=== PATIENT | male | born 1955 | race Caucasian/White ===

== ENCOUNTER 2017-10-08 12:57 | Inpatient (IN) | payer BC ==
[~2017-10-08] VITALS: Ht 185.4 cm; Wt 115.9 kg
[~2017-10-08 12:57] MED LIST: ASCO500C PO; ASPI81 PO; ASPI81TA82 PO; ATOR10 PO; CENTTAB9 PO; CETI10 PO; COQ150CA PO; GUAI600 PO; KRIL300C3 PO; MISC1TAB9 PO; NEBI2.5 PO; NITR.4 SL
[2017-10-08] MEDS ORDERED: IOHEXOL 350 MG/ML 10 ML VIAL (for RAD DIAG) IVCONTRAST ONE (12:58)
[2017-10-08 13:00] VITALS: BP 128/76; PULSE 83; RESP 24; TEMP 98.7; O2SAT 97
[2017-10-08 14:09] LABS: AUTOMATED NEUTROPHIL # 14.3 TH/MM3 (1.8-7.7); BASOPHIL % 0.1 % (0.0-2.0); EOSINOPHIL # 0.2 TH/MM3 (0-0.4); EOSINOPHIL % 1.4 % (0.0-4.0); HEMATOCRIT 40.4 % (39.0-51.0); HEMOGLOBIN 13.9 GM/DL (13.0-17.0); LYMPH % 8.9 % (9.0-44.0); LYMPHOCYTE # 1.5 TH/MM3 (1.0-4.8); MEAN CELL VOLUME 95.8 FL (80.0-100.0); MEAN CORPUSCULAR HEMOGLOBIN 32.9 PG (27.0-34.0); MEAN CORPUSCULAR HGB CONC 34.4 % (32.0-36.0); MEAN PLATELET VOLUME 7.2 FL (7.0-11.0); MONO % 5.8 % (0.0-8.0); NEUT % 83.8 % (16.0-70.0); PLATELET COUNT 558 TH/MM3 (150-450); RED BLOOD COUNT 4.22 MIL/MM3 (4.50-5.90); RED CELL DISTRIBUTION WIDTH 13.9 % (11.6-17.2); WHITE BLOOD COUNT 17.1 TH/MM3 (4.0-11.0)
[2017-10-08] MEDS ORDERED: DIATRIZOATE MEGLUM/DIATRIZOATE SOD 9 ML CUP ONE (14:13)
[2017-10-08 14:15] VITALS: BP 109/61; PULSE 70; RESP 20; O2SAT 97
--- NOTE | 2017-10-08 14:19 | PD ---
HPI Chief Complaint: Fever Time Seen by Provider: 13:24 Travel History International Travel<30 days: No Contact w/Intl Traveler<30days: No Traveled to known affect area: No History of Present Illness HPI 62-year-old male patient presents emergency department for evaluation of intermittent fevers after having an emergency appendectomy on the 29 of September. Patient was discharged from the hospital on the 30 of September. The surgeon's name was Dr Burr. Patient reports the fevers as been as high as 101.5. That fever was 2 days ago. Yesterday patient's temp was 100. Patient denies any fevers today. The surgery was performed at [facility]. The patient presents with his . They report that the appendix had ruptured prior to the surgery and he received IV antibiotics in the facility and was discharged on Augmentin. Patient is still on Augmentin. Patient denies any abdominal pain, nausea, vomiting, diarrhea. Patient denies any chest pain, shortness of breath, cough, body aches. Patient is afebrile at our facility PFSH Past Medical History Hx Anticoagulant Therapy: Yes (ASA 81MG BID) Heart Rhythm Problems: No Cancer: No Cardiac Catheterization: Yes (x 3 ) High Cholesterol: Yes Chest Pain: Yes Congestive Heart Failure: No Coronary Artery Disease: Yes Diminished Hearing: No Endocrine: No Gastrointestinal Disorders: No Genitourinary: No Hypertension: Yes Immune Disorder: No Musculoskeletal: No Neurologic: No Psychiatric: No Reproductive: No Respiratory: No Influenza Vaccination: No Past Surgical History Abdominal Surgery: No Appendectomy: Yes Cardiac Surgery: Yes Coronary Stent: Yes (x 2) Ear Surgery: No Endocrine Surgery: No Eye Surgery: No Genitourinary Surgery: No Gynecologic Surgery: No Oral Surgery: No Thoracic Surgery: No Other Surgery: Yes Social History Alcohol Use: Yes (OCC) Tobacco Use: No Substance Use: No Allergies-Medications (Allergen,Severity, Reaction): Coded Allergies: No Known Allergies (Verified Adverse Reaction, Unknown, 10/08/17) Reported Meds & Prescriptions Reported Meds & Active Scripts Active Reported Osteo Bi-Flex/5-Loxin Adv (Glucosamine Sulfate) 1 Tab Tab 1 Tab PO DAILY Krill Oil [place]-3 (Krill Oil) 300 Mg Cap 300 Mg PO DAILY Mucinex 600 Mg Tab (Guaifenesin) 600 Mg Tabcr 600 Mg PO HS Zyrtec 10 Mg Tab (Cetirizine HCl) 10 Mg Tab 10 Mg PO DAILY Aspir-81 (Aspirin) 81 Mg Tab 162 Mg PO HS Vitamin C (Ascorbic Acid) 500 Mg Cap 500 Mg PO BID Coq10 (Coenzyme Q10) 50 Mg Cap 100 Mg PO HS Centrum (Multivitamins) Tab 1 Tab PO DAILY Lipitor (Atorvastatin Calcium) 10 Mg Tab 20 Mg PO HS Bystolic 2.5 Mg Tab (Nebivolol) 2.5 Mg Tab 2.5 Mg PO DAILY Nitroglycerin 0.4 Mg Subl 0.4 Mg SL PRN FOR CHEST PAIN Aspirin 81 Mg Tab 81 Mg PO DAILY Review of Systems Except as stated in HPI: all other systems reviewed are Neg Physical Exam Narrative GENERAL: Well-nourished, well-developed 62-year-old male patient in no acute distress. Nontoxic appearing. SKIN: 3 small well approximated incisions on abdomen with Steri-Strips in place : 2cm incision inferior to the umbilicus, 1cm incision left lower quadrant, 1cm incision over the symphysis pubis. HEAD: Atraumatic. Normocephalic. EYES: Pupils equal and round. No scleral icterus. No injection or drainage. ENT: No nasal bleeding or discharge. Mucous membranes pink and moist. NECK: Trachea midline. No JVD. CARDIOVASCULAR: Regular rate and rhythm. No murmur appreciated. RESPIRATORY: No accessory muscle use. Clear to auscultation. Breath sounds equal bilaterally. GASTROINTESTINAL: Abdomen soft, non-tender, nondistended. No rebound tenderness. Hepatic and splenic margins not palpable. MUSCULOSKELETAL: No obvious deformities. No clubbing. No cyanosis. No edema. NEUROLOGICAL: Awake and alert. No obvious cranial nerve deficits. Motor grossly within normal limits. Normal speech. PSYCHIATRIC: Appropriate mood and affect; insight and judgment normal. Data Data Last Documented VS Vital Signs Date Time Temp Pulse Resp B/P (MAP) Pulse Ox O2 Delivery O2 Flow Rate FiO2 10/08/17 16:45 68 18 105/56 (72) 97 Room Air 10/08/17 13:00 98.7 Orders Orders Complete Blood Count With Diff (10/08/17 13:36) Comprehensive Metabolic Panel (10/08/17 13:36) Lactic Acid Sepsis Protocol (10/08/17 13:36) Blood Culture (10/08/17 13:36) Ct Abd/Pel W Iv Contrast(Rout) (10/08/17 13:36) Oral Contrast - Adult (10/08/17 13:42) Diatrizoate Liq ( Gastrojimmy Liq) (10/08/17 14:13) Iohexol 350 Inj (Omnipaque 350 Inj) (10/08/17 12:58) NPO (10/08/17 17:44) Piperacil-Tazo 4.5 Gm Premix (Zosyn 4.5 (10/08/17 17:46) Metronidazole 500 Mg Inj (Flagyl 500 Mg (10/08/17 17:46) Admit Order (Ed Use Only) (10/08/17 18:31) Admit To Inpatient (10/08/17 ) Vital Signs (Adult) Q4H (10/08/17 18:31) Activity Oob With Assistance (10/08/17 18:31) Remote Computer Terminal Operator / Telemetry .CONTINUOUS (10/08/17 18:31) Sodium Chloride 0.9% Flush (Ns Flush) (10/08/17 18:45) Sodium Chloride 0.9% Flush (Ns Flush) (10/08/17 21:00) Ondansetron Inj (Zofran Inj) (10/08/17 18:45) Basic Metabolic Panel (Bmp) (10/09/17 06:00) Complete Blood Count With Diff (10/09/17 06:00) Naloxone Inj (Narcan Inj) (10/08/17 18:45) Inpatient Certification (10/08/17 ) Labs Laboratory Tests Test 10/08/17 13:40 White Blood Count 17.1 TH/MM3 Red Blood Count 4.22 MIL/MM3 Hemoglobin 13.9 GM/DL Hematocrit 40.4 % Mean Corpuscular Volume 95.8 FL Mean Corpuscular Hemoglobin 32.9 PG Mean Corpuscular Hemoglobin Concent 34.4 % Red Cell Distribution Width 13.9 % Platelet Count 558 TH/MM3 Mean Platelet Volume 7.2 FL Neutrophils (%) (Auto) 83.8 % Lymphocytes (%) (Auto) 8.9 % Monocytes (%) (Auto) 5.8 % Eosinophils (%) (Auto) 1.4 % Basophils (%) (Auto) 0.1 % Neutrophils # (Auto) 14.3 TH/MM3 Lymphocytes # (Auto) 1.5 TH/MM3 Monocytes # (Auto) 1.0 TH/MM3 Eosinophils # (Auto) 0.2 TH/MM3 Basophils # (Auto) 0.0 TH/MM3 CBC Comment DIFF FINAL Differential Comment Blood Urea Nitrogen 10 MG/DL Creatinine 0.91 MG/DL Random Glucose 98 MG/DL Total Protein 8.2 GM/DL Albumin 2.7 GM/DL Calcium Level 8.5 MG/DL Alkaline Phosphatase 118 U/L Aspartate Amino Transf (AST/SGOT) 53 U/L Alanine Aminotransferase (ALT/SGPT) 75 U/L Total Bilirubin 0.4 MG/DL Sodium Level 137 MEQ/L Potassium Level 4.3 MEQ/L Chloride Level 101 MEQ/L Carbon Dioxide Level 29.2 MEQ/L Anion Gap 7 MEQ/L Estimat Glomerular Filtration Rate 84 ML/MIN Lactic Acid Level 0.7 mmol/L [facility] Medical Decision Making Medical Screen Exam Complete: Yes Emergency Medical Condition: Yes Interpretation(s) afebrile, no tachycardia Differential Diagnosis Differential diagnoses include but are not limited to intra-abdominal abscess, postop infection, peritonitis Narrative Course Patient placed on monitor and IV obtained. Blood works in the lab. CBC, CMP, lactic acid, blood cultures ordered and pending. Abdominal CT ordered and pending. CBC shows leukocytosis with WBCs 17.1. CMP shows hypoalbuminemia at 2.7 Lactic acid 0.[address] shows loculated collection right lower quadrant with gas bubbles within it may represent an abscess in the appropriate clinical setting. Dr Burr called and Dr Sanders was covering. He was in our facility and came to evaluate the patient. He recommends admitting to medicine, consulting IR for draining the abscess tomorrow and Zosyn and Flagyl IV antibiotics. Medicine called for admission at this time. Dr Rees called back and accepted admission. Patient admitted at this time. Diagnosis Primary Impression: Intra-abdominal abscess Admitting Information Admitting Physician Requests: Admit Lucila Mullen Oct 08, 2017 14:19
[2017-10-08 14:24] LABS: ALBUMIN 2.7 GM/DL (3.4-5.0); ALT (GPT) 75 U/L (12-78); AST (GOT) 53 U/L (15-37); BICARBONATE 29.2 MEQ/L (21.0-32.0); BLOOD UREA NITROGEN 10 MG/DL (7-18); CALCIUM 8.5 MG/DL (8.5-10.1); CHLORIDE 101 MEQ/L (98-107); CREATININE 0.91 MG/DL (0.60-1.30); GLOMERULAR FILTRATION RATE 84 ML/MIN (>89); GLUCOSE,RANDOM 98 MG/DL (74-106); SODIUM (NA) 137 MEQ/L (136-145)
[2017-10-08 14:26] LABS: ALKALINE PHOSPHATASE 118 U/L (45-117); TOTAL BILIRUBIN ADULT 0.4 MG/DL (0.2-1.0); TOTAL PROTEIN 8.2 GM/DL (6.4-8.2)
[2017-10-08 15:45] VITALS: BP 112/62; PULSE 68; RESP 20; O2SAT 97
[2017-10-08 16:45] VITALS: BP 105/56; PULSE 68; RESP 18; O2SAT 97
--- NOTE | 2017-10-08 17:44 | RADRPT ---
EXAM DATE/TIME: 10/08/2017 17:21 [place] COMPARISON: No previous studies available for comparison. INDICATIONS : Fever for 4 days. Post op appendectomy. Possible abscess. IV CONTRAST: 95 cc Omnipaque 350 (iohexol) IV ORAL CONTRAST: Prescribed oral contrast ingested. RADIATION DOSE: 24.10 CTDIvol (mGy) ; Patient body habitus MEDICAL HISTORY : Cardiovascular disease. Hypertension. SURGICAL HISTORY : Appendectomy. ENCOUNTER: Initial ACUITY: 4 - 6 days PAIN SCALE: 2/10 LOCATION: Right lower quadrant TECHNIQUE: Volumetric scanning of the abdomen and pelvis was performed. Using automated exposure control and ad justment of the mA and/or kV according to patient size, radiation dose was kept as low as reasonably achievable to obtain optimal diagnostic quality images. DICOM format image data is available electro nically for review and comparison. FINDINGS: CT Abdomen: The liver, spleen, pancreas, kidneys, adrenals are unremarkable. There is no evidence for any appreciable pathological adenopathy, free fluid, or bowel obstruction. CT pelvis: There is a loculated fluid collection in right lower quadrant with gas bubbles within it a maximum diameter of 8.7 cm with haziness of surrounding fat planes in this patient post appendectomy . CONCLUSION: Loculated collection right lower quadrant with gas bubbles within it may represent an abscess in the appropriate clinical setting. April Lorenz MD on October 08, 2017 at 17:39 Board Certified Radiologist. This report was verified electronically.
[2017-10-08] MEDS ORDERED: PIPERACIL-TAZO 4.5 GM PREMIX 100 ML IV STA (17:46)
[2017-10-08] MEDS ORDERED: metroNIDAZOLE 500 MG INJ 100 ML IV STA (17:46)
[2017-10-08] MEDS ORDERED: ONDANSETRON HCL 4 MG/2 ML VIAL IVP PRN (18:45)
[2017-10-08] MEDS ORDERED: NALOXONE HCL 0.4 MG/ML AMP IV PUSH PRN (18:45)
[2017-10-08 18:55] VITALS: BP 133/94; PULSE 69; RESP 18; O2SAT 97
--- NOTE | 2017-10-08 19:18 | MB ---
cc: KEISHA JOHANSEN DATE OF : 51 DATE OF CONSULTATION: 10/08/2017 REQUESTING PHYSICIAN: Dr. Grant, emergency room physician. REASON FOR CONSULTATION: Possible abdominal abscess after laparoscopic appendectomy. HISTORY OF PRESENT ILLNESS The patient is a 62-year-old male who underwent a laparoscopic appendectomy at [facility] by Dr. Don Burr on September 29, 2017. The patient was noted to have a gangrenous appendicitis, possibly perforated, though this was unsure. The patient had uneventful surgery but was home and developed worsening pain and fever to 101.5. The patient was concerned and presented to [facility] as he did not want to return to [facility] The patient is known to Dr. Pierce, as Dr. Peirce operated on the patient's , and they were displeased that they were not seen by Dr. Pierce at [facility] The patient states he is able to tolerate a diet. He is having bowel movements. Other than the fevers and the pain, he has no other complaints. He has no chest pain or shortness of breath, or neurologic symptoms. The patient underwent a CT scan in the emergency department which showed a loculated right lower quadrant fluid collection with air bubbles, possible early abscess formation. Laboratory values revealed a leukocytosis of 17. The patient is being admitted to the hospital service for IV antibiotics and general surgery has been consulted on the patient. REVIEW OF SYSTEMS: A 12 point review of systems is discussed with the patient and is negative except for the pertinent positives mentioned above in the history of present illness. PAST MEDICAL HISTORY: 1. Hypocholesterolemia. 2. Coronary artery disease. 3. Hypertension. PAST SURGICAL HISTORY: 1. Appendectomy as above. 2. Coronary stents. 3. Cardiac surgery. ALLERGIES: NO KNOWN DRUG ALLERGIES. MEDICATIONS: Most notably: 1. Aspirin 81 milligrams. 2. Bystolic. 3. Nitroglycerin. 4. Multiple vitamins. SOCIAL HISTORY: The patient occasionally uses alcohol, does not use tobacco or illicit drug use. FAMILY HISTORY Noncontributory. PHYSICAL EXAMINATION: Vital signs: Temperature 98.7 degrees, pulse 68, respiratory rate 16, blood pressure 105/56, O2 saturation 97% on room air. GENERAL: The patient is a well-developed, well-nourished male in no acute distress. Head: Head normocephalic, atraumatic. Pupils equal, round, reactive to light and accommodation. Sclerae anicteric. Oral cavity is clear. Airway is patent. Chest: Breath sounds present bilaterally, nonlabored. Heart: Regular rhythm. Abdomen: Soft, nontender to palpation. There is subjective discomfort in the right lower quadrant without peritonitis, rebound tenderness or guarding. Surgical scars are healing well with no obvious infection. Steri-Strips are in place. Extremities: No clubbing, cyanosis or edema. Neurologic: The patient is alert and oriented x 3, nonfocal exam. Cranial nerves II-XII grossly intact. ASSESSMENT/PLAN The patient is a 62-year-old male with likely postoperative abscess after gangrenous possibly perforated appendicitis. This is an expected complication after a complicated appendicitis and treatment recommendations including interventional radiology, drainage, IV antibiotics, hospital admission. I agree with admission and IV antibiotics. The patient will have a regular diet, however, we will make the patient n.p.o. after midnight as he will need interventional radiology to see him tomorrow for possible drainage. The patient is in agreement with this treatment plan. All questions were answered to his satisfaction. MD FRED Morales/MAXIMINO /6:19 PM /6:44 PM
--- NOTE | 2017-10-08 19:25 | HHI.HP ---
[facility] Service [facility] Hospital[facility] Primary Care Physician No Primary Care Physician Admission Diagnosis intra-abdominal abscess Diagnoses: Travel History International Travel<30 Days: No Contact w/Intl Traveler <30 Da: No Traveled to Known Affected Are: No History of Present Illness 62-year-old male with a past medical history significant for hypertension, hyperlipidemia and CAD presents to the emergency department with intermittent fever/chills and abdominal pain since Sunday. The patient is status post laparoscopic appendectomy for perforated appendicitis at [facility] on . He denies any nausea/vomiting. Vital signs on arrival to the emergency department temperature 98.7, pulse 83, respiratory rate 24, BP 128/76 pulse ox 97% on room air. CT of the abdomen/pelvis shows loculated collection in the right lower quadrant with gas bubbles personal banking representative of abscess. Review of Systems Positive fever/chills Denies blurry vision, otorrhea, rhinorrhea Denies sore throat and cough No chest pain, palpitations, shortness of breath Positive abdominal pain Denies constipation/diarrhea/nausea/vomiting Denies muscle pain/weakness No rashes Past Family Social History Past Medical History Hypertension Hyperlipidemia CAD status post stent placement 2 Past Surgical History Cardiac catheterization in 2008, 2011 with stent placement to the LAD 2 Right knee surgery Appendectomy 09/29/70 Reported Medications Reported Meds & Active Scripts Active Reported Osteo Bi-Flex/5-Loxin Adv (Glucosamine Sulfate) 1 Tab Tab 1 Tab PO DAILY Krill Oil [place]-3 (Krill Oil) 300 Mg Cap 300 Mg PO DAILY Mucinex 600 Mg Tab (Guaifenesin) 600 Mg Tabcr 600 Mg PO HS Zyrtec 10 Mg Tab (Cetirizine HCl) 10 Mg Tab 10 Mg PO DAILY Aspir-81 (Aspirin) 81 Mg Tab 162 Mg PO HS Vitamin C (Ascorbic Acid) 500 Mg Cap 500 Mg PO BID Coq10 (Coenzyme Q10) 50 Mg Cap 100 Mg PO HS Centrum (Multivitamins) Tab 1 Tab PO DAILY Lipitor (Atorvastatin Calcium) 10 Mg Tab 20 Mg PO HS Bystolic 2.5 Mg Tab (Nebivolol) 2.5 Mg Tab 2.5 Mg PO DAILY Nitroglycerin 0.4 Mg Subl 0.4 Mg SL PRN FOR CHEST PAIN Aspirin 81 Mg Tab 81 Mg PO DAILY Allergies: Coded Allergies: No Known Allergies (Verified Adverse Reaction, Unknown, 10/08/17) Family History Mother with CAD and DM Social History Occasional alcohol. Denies tobacco, illicit drugs. Physical Exam Vital Signs Vital Signs Date Time Temp Pulse Resp B/P (MAP) Pulse Ox O2 Delivery O2 Flow Rate FiO2 10/08/17 18:55 69 18 133/94 (107) 97 Room Air 10/08/17 16:45 68 18 105/56 (72) 97 Room Air 10/08/17 15:45 68 20 112/62 (79) 97 Room Air 10/08/17 14:15 70 20 109/61 (77) 97 Room Air 10/08/17 13:30 16 97 Room Air 10/08/17 13:00 98.7 83 24 128/76 (93) 97 Room Air Physical Exam GENERAL: Occasional male sitting up in bed SKIN: No rashes, ecchymoses or lesions. Cool and dry. HEAD: Atraumatic. Normocephalic. No temporal or scalp tenderness. EYES: Pupils equal round and reactive. Extraocular motions intact. No scleral icterus. No injection or drainage. ENT: Nose without bleeding, purulent drainage or septal hematoma. Throat without erythema, tonsillar hypertrophy or exudate. Uvula midline. Airway patent. NECK: Trachea midline. No JVD or lymphadenopathy. Supple, nontender, no meningeal signs. CARDIOVASCULAR: Regular rate and rhythm without murmurs, gallops, or rubs. RESPIRATORY: Clear to auscultation. Breath sounds equal bilaterally. No wheezes , rales, or rhonchi. GASTROINTESTINAL: Abdomen soft, ttp in RLQ, nondistended. No hepato-splenomegaly , or palpable masses. No guarding. 3 laparoscopic incisions without signs of infection. Well-healing without drainage. MUSCULOSKELETAL: Extremities without clubbing, cyanosis, or edema. No joint tenderness, effusion, or edema noted. No calf tenderness. NEUROLOGICAL: Awake and alert. Cranial nerves II through XII intact. Motor and sensory grossly within normal limits. Normal speech. Laboratory Laboratory Tests Test 10/08/17 13:40 White Blood Count 17.1 Red Blood Count 4.22 Hemoglobin 13.9 Hematocrit 40.4 Mean Corpuscular Volume 95.8 Mean Corpuscular Hemoglobin 32.9 Mean Corpuscular Hemoglobin Concent 34.4 Red Cell Distribution Width 13.9 Platelet Count 558 Mean Platelet Volume 7.2 Neutrophils (%) (Auto) 83.8 Lymphocytes (%) (Auto) 8.9 Monocytes (%) (Auto) 5.8 Eosinophils (%) (Auto) 1.4 Basophils (%) (Auto) 0.1 Neutrophils # (Auto) 14.3 Lymphocytes # (Auto) 1.5 Monocytes # (Auto) 1.0 Eosinophils # (Auto) 0.2 Basophils # (Auto) 0.0 CBC Comment DIFF FINAL Differential Comment Blood Urea Nitrogen 10 Creatinine 0.91 Random Glucose 98 Total Protein 8.2 Albumin 2.7 Calcium Level 8.5 Alkaline Phosphatase 118 Aspartate Amino Transf (AST/SGOT) 53 Alanine Aminotransferase (ALT/SGPT) 75 Total Bilirubin 0.4 Sodium Level 137 Potassium Level 4.3 Chloride Level 101 Carbon Dioxide Level 29.2 Anion Gap 7 Estimat Glomerular Filtration Rate 84 Lactic Acid Level 0.7 Date/Time Source Procedure Growth Status 10/08/17 13:45 Blood Peripheral Aerobic Blood Culture Pending Received 10/08/17 13:45 Blood Peripheral Anaerobic Blood Culture Pending Received Result Diagram: 10/08/17 1340 10/08/17 1340 Caprini VTE Risk Assessment Caprini VTE Risk Assessment: Mod/High Risk (score >= 2) Caprini Risk Assessment Model Point Value = 1 Point Value = 2 Point Value = 3 Point Value = 5 Age 41-60 Minor surgery BMI > 25 kg/m2 Swollen legs Varicose veins or History of unexplained or recurrent spontaneous Oral contraceptives or hormone replacement Sepsis (< 1 month) Serious lung disease, including pneumonia (< 1 month) Abnormal pulmonary function Acute myocardial infarction Congestive heart failure (< 1 month) History of inflammatory bowel disease Medical patient at bed rest Age 61-74 Arthroscopic surgery Major open surgery (> 45 min) Laparoscopic surgery (> 45 min) Malignancy Confined to bed (> 72 hours) Immobilizing plaster cast Central venous access Age >= 75 History of VTE Family history of VTE Factor V Leiden Prothrombin [id number] Lupus anticoagulant Anticardiolipin antibodies Elevated serum homocysteine Heparin-induced thrombocytopenia Other congenital or acquired thrombophilia Stroke (< 1 month) Elective arthroplasty Hip, pelvis, or leg fracture Acute spinal cord injury (< 1 month) Prophylaxis Regimen Total Risk Factor Score Risk Level Prophylaxis Regimen 0-1 Low Early ambulation 2 Moderate Order ONE of the following: *Sequential Compression Device (SCD) *Heparin 5000 units SQ BID 3-4 Higher Order ONE of the following medications: *Heparin 5000 units SQ TID *Enoxaparin/Lovenox 40 mg SQ daily (WT < 150 kg, CrCl > 30 mL/min) *Enoxaparin/Lovenox 30 mg SQ daily (WT < 150 kg, CrCl > 10-29 mL/min) *Enoxaparin/Lovenox 30 mg SQ BID (WT < 150 kg, CrCl > 30 mL/min) AND/OR *Sequential Compression Device (SCD) 5 or more Highest Order ONE of the following medications: *Heparin 5000 units SQ TID (Preferred with Epidurals) *Enoxaparin/Lovenox 40 mg SQ daily (WT < 150 kg, CrCl > 30 mL/min) *Enoxaparin/Lovenox 30 mg SQ daily (WT < 150 kg, CrCl > 10-29 mL/min) *Enoxaparin/Lovenox 30 mg SQ BID (WT < 150 kg, CrCl > 30 mL/min) AND *Sequential Compression Device (SCD) Assessment and Plan Assessment and Plan Assessment/plan: 1. Abdominal abscess status post appendectomy CT of the abdomen/pelvis shows loculated collection in the right lower quadrant with gas bubbles personal banking representative of an abscess WBC 17.1 General surgery consulted, appreciate recommendations Interventional radiology consulted for CT-guided abscess drainage in the morning Zosyn Monitor for signs of sepsis 2. Hypertension/CAD Continue home Bystolic Holding aspirin in anticipation of procedures 3. Hyperlipidemia Continue home statin FEN: Nothing by mouth after midnight Electrolytes: Monitor and replete when necessary NS at 100 cc/hr Holding pharmacologic anticoagulation in anticipation of procedure tomorrow Physician Certification 2 Midnight Certification Type: Admission for Inpatient Services Order for Inpatient Services The services are ordered in accordance with Medicare regulations or non- Medicare payer requirements, as applicable. In the case of services not specified as inpatient-only, they are appropriately provided as inpatient services in accordance with the 2-midnight benchmark. Estimated LOS (days): 2 2 days is the estimated time the patient will need to remain in the hospital, assuming treatment plan goals are met and no additional complications. Post-Hospital Plan: Home Yamileth King MD Oct 08, 2017 19:25
[2017-10-08 20:00] VITALS: BP 114/66; PULSE 77; RESP 17; TEMP 96.7; O2SAT 94
[2017-10-08] MEDS: SODIUM CHLOR 0.9% 1000 ML INJ 1,000 ML IV SCH (20:30)
[2017-10-08] MEDS: SODIUM CHLORIDE 0.9% FLUSH 10 ML FLUSH IV FLUSH SCH (20:30)
[2017-10-08] MEDS: ATORVASTATIN 20 MG TAB PO SCH (20:31)
[2017-10-09] VITALS (9 sets, daily range): BP systolic 105–118; BP diastolic 59–72; PULSE 67–85; RESP 16–22; TEMP 97–99.2; O2SAT 92–97
[2017-10-09] MEDS: PIPERACIL-TAZO 4.5 GM PREMIX 100 ML IV SCH ×4 (00:01→16:57)
[2017-10-09] MEDS: SODIUM CHLOR 0.9% 1000 ML INJ 1,000 ML IV SCH ×2 (04:29→16:57)
[2017-10-09 07:19] LABS: AUTOMATED NEUTROPHIL # 13.5 TH/MM3 (1.8-7.7); BASOPHIL % 0.2 % (0.0-2.0); EOSINOPHIL # 0.3 TH/MM3 (0-0.4); EOSINOPHIL % 1.9 % (0.0-4.0); HEMATOCRIT 36.3 % (39.0-51.0); HEMOGLOBIN 12.4 GM/DL (13.0-17.0); LYMPH % 7.2 % (9.0-44.0); LYMPHOCYTE # 1.1 TH/MM3 (1.0-4.8); MEAN CELL VOLUME 95.3 FL (80.0-100.0); MEAN CORPUSCULAR HEMOGLOBIN 32.4 PG (27.0-34.0); MEAN PLATELET VOLUME 7.3 FL (7.0-11.0); MONO % 6.2 % (0.0-8.0); NEUT % 84.5 % (16.0-70.0); PLATELET COUNT 490 TH/MM3 (150-450); RED BLOOD COUNT 3.81 MIL/MM3 (4.50-5.90); RED CELL DISTRIBUTION WIDTH 13.7 % (11.6-17.2)
[2017-10-09 07:27] LABS: INTERNATIONAL NORMALIZED RATIO 1.1 RATIO; PROTHROMBIN TIME - PATIENT 11.4 SEC (9.8-11.6)
[2017-10-09 07:47] LABS: BICARBONATE 28.7 MEQ/L (21.0-32.0); CALCIUM 8.4 MG/DL (8.5-10.1); CREATININE 0.92 MG/DL (0.60-1.30)
[2017-10-09] MEDS: NEBIVOLOL 2.5 MG TAB PO SCH (08:51)
[2017-10-09] MEDS: SODIUM CHLORIDE 0.9% FLUSH 10 ML FLUSH IV FLUSH SCH ×2 (09:00→21:11)
--- NOTE | 2017-10-09 10:17 | HHI.PR ---
cc: Miguel Sanders MD Subjective Subjective Notes Resting in bed No issue overnight Objective Vitals/I&O Vital Signs Date Time Temp Pulse Resp B/P (MAP) Pulse Ox O2 Delivery O2 Flow Rate FiO2 10/09/17 08:00 98.1 74 19 118/72 (87) 93 10/08/17 18:55 Room Air Labs Laboratory Tests Test 10/08/17 13:40 10/09/17 06:24 White Blood Count 17.1 16.0 Red Blood Count 4.22 3.81 Hemoglobin 13.9 12.4 Hematocrit 40.4 36.3 Mean Corpuscular Volume 95.8 95.3 Mean Corpuscular Hemoglobin 32.9 32.4 Mean Corpuscular Hemoglobin Concent 34.4 34.0 Red Cell Distribution Width 13.9 13.7 Platelet Count 558 490 Mean Platelet Volume 7.2 7.3 Neutrophils (%) (Auto) 83.8 84.5 Lymphocytes (%) (Auto) 8.9 7.2 Monocytes (%) (Auto) 5.8 6.2 Eosinophils (%) (Auto) 1.4 1.9 Basophils (%) (Auto) 0.1 0.2 Neutrophils # (Auto) 14.3 13.5 Lymphocytes # (Auto) 1.5 1.1 Monocytes # (Auto) 1.0 1.0 Eosinophils # (Auto) 0.2 0.3 Basophils # (Auto) 0.0 0.0 CBC Comment DIFF FINAL DIFF FINAL Differential Comment Blood Urea Nitrogen 10 11 Creatinine 0.91 0.92 Random Glucose 98 114 Total Protein 8.2 Albumin 2.7 Calcium Level 8.5 8.4 Alkaline Phosphatase 118 Aspartate Amino Transf (AST/SGOT) 53 Alanine Aminotransferase (ALT/SGPT) 75 Total Bilirubin 0.4 Sodium Level 137 138 Potassium Level 4.3 4.4 Chloride Level 101 103 Carbon Dioxide Level 29.2 28.7 Anion Gap 7 6 Estimat Glomerular Filtration Rate 84 83 Lactic Acid Level 0.7 Prothrombin Time 11.4 Prothromb Time International Ratio 1.1 Activated Partial Thromboplast Time 26.7 Date/Time Source Procedure Growth Status 10/08/17 13:45 Blood Peripheral Aerobic Blood Culture Pending Received 10/08/17 13:45 Blood Peripheral Anaerobic Blood Culture Pending Received Cardiovascular: Regular Lungs: Clear Abdomen: Other (RLQ tenderness with palpation; lap sites c/d/i from prior procedure with Steri Strips in place ) Extremities: No edema A/P Assessment and Plan 62 year old male with laparoscopic appendectomy on 09/29 at [facility]; back with abdominal pain; fevers -CT abd/pelvis showed loculated collection in RLQ with abscess -CT guided drainage today -NPO for procedure -Zosyn -Continue to watch WBC/fevers Elinor Barrientos Oct 09, 2017 10:17
[2017-10-09] MEDS: SODIUM CHLORIDE 0.9% FLUSH 10 ML FLUSH IV FLUSH PRN (12:24)
[2017-10-09] MEDS ORDERED: MORPHINE SULFATE 2 MG/ML INJ IV PRN (12:30)
[2017-10-09] MEDS ORDERED: oxyCODONE/ACETAMINOPHEN 5 MG/325 MG TAB PO PRN (12:30)
[2017-10-09] MEDS ORDERED: LIDOCAINE HCL 1% 20 ML VIAL ONE (14:11)
[2017-10-09] MEDS ORDERED: MIDAZOLAM HCL 2 MG/2 ML VIAL ONE ×3 (14:30→15:06)
--- NOTE | 2017-10-09 16:25 | RADRPT ---
EXAM DATE/TIME: 10/09/2017 14:40 [place] COMPARISON: No previous studies available for comparison. INDICATIONS : Right lower quadrant abscess drain. SEDATION TIME: 45 MEDICATION(S): 1.) 5 mg midazolam (Versed) IV 2.) 325 mcg fentanyl (Sublimaze) IV DEVICE(S): 1.) 8 Fr locking Skater 2.) 18 gauge Cisse blunt needle FLUID: Total volume of 25 cc of bloody fluid was removed. Fluid was sent for laboratory ordered studies. MEDICAL HISTORY : Cardiovascular disease. Hypertension. SURGICAL HISTORY : Appendectomy. ENCOUNTER: Initial ACUITY: 1 day PAIN SCORE: 4/10 LOCATION: Right lower quadrant PROCEDURE: 1.) Conscious sedation with continuous EKG and oximetry monitoring. 2.) EKG and oximetry remained stable throughout the procedure. PROCEDURE : 1. CT guided drainage of the right lower quadrant collection 2. Conscious sedation with continuous EKG and oximetry monitoring. The risks, benefits and alternatives to the procedure were explained and verbal and written consent w as obtained. Using automated exposure control and adjustment of the mA and/or kV according to patient size, radiation dose was kept as low as reasonably achievable to obtain optimal diagnostic quality i mages. The site was prepped in sterile fashion. Full sterile technique was used, including cap, ma sk, sterile gloves and gown and a large sterile sheet. Hand hygiene and 2% chlorhexidine and/or beta dine/alcohol prep was utilized per protocol for cutaneous antisepsis. The skin and subcutaneous tiss ues were infiltrated with local anesthetic solution. DICOM format image data is available electronic ally for review and comparison. Using CT guidance the prescribed site was localized. Drainage was performed using the prescribed cat heter. The fluid was sent for culture and sensitivity. The patient tolerated the procedure well and there were no complications. Conscious sedation was per formed with the prescribed dosages and duration as above in the presence of an independent trained ra diology nurse to assist in the monitoring of the patient. EKG and oximetry remained stable throughou t the procedure. The patient tolerated the procedure well and there were no complications. The patient was sent to pos t anesthesia recovery in stable condition. CONCLUSION: Uncomplicated CT guided drainage. Donnell Perry MD on October 09, 2017 at 16:21 Board Certified Radiologist. This report was verified electronically.
[2017-10-09] MEDS: oxyCODONE/ACETAMINOPHEN 10 MG/325 MG TAB PO PRN ×2 (16:56→21:14)
--- NOTE | 2017-10-09 17:01 | HHI.PR ---
Subjective Remarks still having abdominal pain Going for drainage by IR today WBC at 16,000 platelets at 490 Afebrile Objective Vitals Vital Signs Date Time Temp Pulse Resp B/P (MAP) Pulse Ox O2 Delivery O2 Flow Rate FiO2 10/09/17 16:40 68 16 115/62 (79) 96 10/09/17 16:10 69 16 115/64 (81) 96 10/09/17 15:55 98.2 69 16 116/69 (85) 96 10/09/17 12:29 18 10/09/17 12:00 98.0 85 17 105/71 (82) 96 10/09/17 08:00 98.1 74 19 118/72 (87) 93 10/09/17 08:00 68 10/09/17 04:00 99.2 75 16 108/61 (77) 92 10/09/17 00:00 98.4 73 17 115/66 (82) 95 10/08/17 20:00 96.7 77 17 114/66 (82) 94 10/08/17 18:55 69 18 133/94 (107) 97 Room Air I/O 10/08/17 10/08/17 10/08/17 10/09/17 10/09/17 10/09/17 07:00 15:00 23:00 07:00 15:00 23:00 Intake Total 200 ml 1360 ml Output Total 925 ml Balance 200 ml 435 ml Intake Oral 360 ml IV Total 200 ml 1000 ml Output Urine Total 925 ml Result Diagram: 10/09/1724 10/09/17 0624 Objective Remarks GENERAL: This is a well-nourished, well-developed patient, in no apparent distress. SKIN: No rashes, warm and dry HEAD: Atraumatic. Normocephalic. EYES: Pupils equal round and reactive. Extraocular motions intact. No scleral icterus. ENT: Nose without bleeding, or drainage, Airway patent. NECK: Trachea midline. Supple CARDIOVASCULAR: Regular rate and rhythm without murmurs, gallops, or rubs. RESPIRATORY: Fair air entry bilaterally. No wheezes, rales, or rhonchi. GASTROINTESTINAL: Abdomen soft, non-tender, nondistended. Positive bowel sounds MUSCULOSKELETAL: Extremities without clubbing, cyanosis, or edema. Pedal pulses appreciated NEUROLOGICAL: Awake and alert. Moves all extremity. Normal speech.no focal neurological deficit A/P Assessment and Plan 10/09/17: Patient going for abscess drainage by IR today, WBC 16,000 platelet is 490, repeat CBC in a.m., continue antibiotic follow with surgery A/P: 1. Abdominal abscess status post appendectomy CT of the abdomen/pelvis shows loculated collection in the right lower quadrant with gas bubbles career services representative of an abscess WBC 17.1 General surgery consulted, appreciate recommendations Interventional radiology consulted for CT-guided abscess drainage in the morning Zosyn Monitor for signs of sepsis 2. Hypertension/CAD Continue home Bystolic Holding aspirin in anticipation of procedures 3. Hyperlipidemia Continue home statin FEN: Nothing by mouth after midnight Electrolytes: Monitor and replete when necessary NS at 100 cc/hr Henry Yuan MD Oct 09, 2017 17:01
[2017-10-09] MEDS: ATORVASTATIN 20 MG TAB PO SCH (21:11)
[2017-10-10] VITALS (8 sets, daily range): BP systolic 92–102; BP diastolic 55–62; PULSE 64–85; RESP 17–20; TEMP 96–97.7; O2SAT 94–96
[2017-10-10] MEDS: PIPERACIL-TAZO 4.5 GM PREMIX 100 ML IV SCH ×4 (00:12→17:29)
[2017-10-10] MEDS: SODIUM CHLOR 0.9% 1000 ML INJ 1,000 ML IV SCH ×3 (00:12→11:40)
[2017-10-10] MEDS: oxyCODONE/ACETAMINOPHEN 10 MG/325 MG TAB PO PRN ×5 (04:14→21:26)
[2017-10-10] MEDS: SODIUM CHLORIDE 0.9% FLUSH 10 ML FLUSH IV FLUSH PRN (06:24)
[2017-10-10] MEDS: SODIUM CHLORIDE 0.9% FLUSH 10 ML FLUSH IV FLUSH SCH ×3 (08:07→21:27)
[2017-10-10] MEDS: NEBIVOLOL 2.5 MG TAB PO SCH ×2 (08:10→08:11)
[2017-10-10 10:23] LABS: AUTOMATED NEUTROPHIL # 8.6 TH/MM3 (1.8-7.7); BASOPHIL % 0.2 % (0.0-2.0); EOSINOPHIL # 0.4 TH/MM3 (0-0.4); EOSINOPHIL % 3.2 % (0.0-4.0); HEMATOCRIT 35.7 % (39.0-51.0); HEMOGLOBIN 11.9 GM/DL (13.0-17.0); LYMPH % 14.7 % (9.0-44.0); LYMPHOCYTE # 1.7 TH/MM3 (1.0-4.8); MEAN CELL VOLUME 95.5 FL (80.0-100.0); MEAN CORPUSCULAR HEMOGLOBIN 31.9 PG (27.0-34.0); MEAN CORPUSCULAR HGB CONC 33.4 % (32.0-36.0); MEAN PLATELET VOLUME 7.2 FL (7.0-11.0); MONO % 6.7 % (0.0-8.0); MONOCYTE # 0.8 TH/MM3 (0-0.9); NEUT % 75.2 % (16.0-70.0); PLATELET COUNT 509 TH/MM3 (150-450); RED BLOOD COUNT 3.74 MIL/MM3 (4.50-5.90); RED CELL DISTRIBUTION WIDTH 13.8 % (11.6-17.2); WHITE BLOOD COUNT 11.4 TH/MM3 (4.0-11.0)
--- NOTE | 2017-10-10 14:24 | HHI.PR ---
Subjective Remarks no abdominal pain no fever WBC dropped to 11,000 Objective Vitals Vital Signs Date Time Temp Pulse Resp B/P (MAP) Pulse Ox O2 Delivery O2 Flow Rate FiO2 10/10/17 12:00 96.0 65 17 102/62 (75) 94 10/10/17 08:01 72 10/10/17 08:00 97.3 73 17 102/55 (71) 94 10/10/17 04:00 97.3 74 20 101/57 (72) 95 10/10/17 00:00 96.7 76 20 92/61 (71) 94 10/09/17 20:00 67 10/09/17 20:00 98.1 71 22 106/59 (75) 96 10/09/17 17:56 18 10/09/17 17:00 97.0 75 18 113/71 (85) 97 10/09/17 16:40 68 16 115/62 (79) 96 10/09/17 16:10 69 16 115/64 (81) 96 10/09/17 15:55 98.2 69 16 116/69 (85) 96 I/O 10/09/17 10/09/17 10/09/17 10/10/17 10/10/17 10/10/17 07:00 15:00 23:00 07:00 15:00 23:00 Intake Total 1360 ml 900 ml 2878 ml 800 ml Output Total 925 ml 935 ml 385 ml Balance 435 ml -35 ml 2493 ml 800 ml Intake Oral 360 ml 900 ml 240 ml IV Total 1000 ml 2638 ml 800 ml Output Urine Total 925 ml 875 ml 325 ml Drainage Total 60 ml 60 ml # Voids 2 1 # Bowel Movements 0 Result Diagram: 10/10/17 0946 10/09/17 0624 Objective Remarks GENERAL: This is a well-nourished, well-developed patient, in no apparent distress. SKIN: No rashes, warm and dry HEAD: Atraumatic. Normocephalic. EYES: Pupils equal round and reactive. Extraocular motions intact. No scleral icterus. ENT: Nose without bleeding, or drainage, Airway patent. NECK: Trachea midline. Supple CARDIOVASCULAR: Regular rate and rhythm without murmurs, gallops, or rubs. RESPIRATORY: Fair air entry bilaterally. No wheezes, rales, or rhonchi. GASTROINTESTINAL: Abdomen soft, non-tender, nondistended. Positive bowel sounds MUSCULOSKELETAL: Extremities without clubbing, cyanosis, or edema. Pedal pulses appreciated NEUROLOGICAL: Awake and alert. Moves all extremity. Normal speech.no focal neurological deficit A/P Assessment and Plan 10/09/17: Patient going for abscess drainage by IR today, WBC 16,000 platelet is 490, repeat CBC in a.m., continue antibiotic follow with surgery (10/10/17: WBC dropped to 11,000, repeat CBC in a.m., continue antibiotic, follow with surgery until clearance for discharge A/P: 1. Abdominal abscess status post appendectomy CT of the abdomen/pelvis shows loculated collection in the right lower quadrant with gas bubbles member services representative of an abscess WBC 17.1 General surgery consulted, appreciate recommendations Interventional radiology consulted for CT-guided abscess drainage in the morning Zosyn Monitor for signs of sepsis 2. Hypertension/CAD Continue home Bystolic Holding aspirin in anticipation of procedures 3. Hyperlipidemia Continue home statin FEN: Nothing by mouth after midnight Electrolytes: Monitor and replete when necessary NS at 100 cc/hr Henry Yuan MD Oct 10, 2017 14:24
--- NOTE | 2017-10-10 14:35 | HHI.PR ---
cc: Lars Pierce MD Subjective Subjective Notes Resting in bed Feeling better Just ordered breakfast Objective Vitals/I&O Vital Signs Date Time Temp Pulse Resp B/P (MAP) Pulse Ox O2 Delivery O2 Flow Rate FiO2 10/10/17 12:00 96.0 65 17 102/62 (75) 94 10/08/17 18:55 Room Air Labs Laboratory Tests Test 10/10/17 09:46 White Blood Count 11.4 Red Blood Count 3.74 Hemoglobin 11.9 Hematocrit 35.7 Mean Corpuscular Volume 95.5 Mean Corpuscular Hemoglobin 31.9 Mean Corpuscular Hemoglobin Concent 33.4 Red Cell Distribution Width 13.8 Platelet Count 509 Mean Platelet Volume 7.2 Neutrophils (%) (Auto) 75.2 Lymphocytes (%) (Auto) 14.7 Monocytes (%) (Auto) 6.7 Eosinophils (%) (Auto) 3.2 Basophils (%) (Auto) 0.2 Neutrophils # (Auto) 8.6 Lymphocytes # (Auto) 1.7 Monocytes # (Auto) 0.8 Eosinophils # (Auto) 0.4 Basophils # (Auto) 0.0 CBC Comment DIFF FINAL Differential Comment Date/Time Source Procedure Growth Status 10/08/17 13:45 Blood Peripheral Aerobic Blood Culture - Preliminary NO GROWTH IN 2 DAYS Resulted 10/08/17 13:45 Blood Peripheral Anaerobic Blood Culture - Preliminary NO GROWTH IN 2 DAYS Resulted 10/09/17 15:30 Abscess Abdomen Gram Stain - Final Resulted 10/09/17 15:30 Wound Culture - Preliminary Gram Negative Johnathan Resulted Cardiovascular: Regular Lungs: Clear Abdomen: Other (s/p IR placed drain--- thick pus like liquid in collection bag ; steri strips from prior surgery at OSH intact ), Post-op tenderness Extremities: No edema A/P Assessment and Plan 62 year old male with laparoscopic appendectomy on 09/29 at OSH; back with abdominal pain; fevers -CT abd/pelvis showed loculated collection in RLQ with abscess -IR placed drain yesterday -Regular diet -Continue Zosyn -Await cultures and will transition to PO antibiotics -WBC trending down Attending Statement Abdomen soft. IR drainage of abscess. will await ID to switch to po abx and DC home with drain. The exam, history, and the medical decision-making described in the above note were completed with the assistance of the mid-level provider. I reviewed and agree with the findings presented. I attest that I had a [id number] encounter with the patient on the same day, and personally performed and documented my assessment and findings in the medical record. Elinor Barrientos Oct 10, 2017 14:35 Lars Pierce MD Oct 11, 2017 10:56
[2017-10-10] MEDS: LACTOBACILLUS ACIDOPHILUS TAB PO SCH (17:29)
[2017-10-10] MEDS: ATORVASTATIN 20 MG TAB PO SCH (21:26)
[2017-10-11] VITALS: BP 106/59; PULSE 72; RESP 20; TEMP 98.2; O2SAT 94
[2017-10-11] MEDS: PIPERACIL-TAZO 4.5 GM PREMIX 100 ML IV SCH ×2 (01:38→05:23)
[2017-10-11] MEDS: oxyCODONE/ACETAMINOPHEN 10 MG/325 MG TAB PO PRN (01:43)
[2017-10-11] MEDS: SODIUM CHLOR 0.9% 1000 ML INJ 1,000 ML IV SCH ×3 (01:44→12:19)
[2017-10-11 04:00] VITALS: BP 109/62; PULSE 80; RESP 20; TEMP 97.2; O2SAT 94
[2017-10-11] MEDS: SODIUM CHLORIDE 0.9% FLUSH 10 ML FLUSH IV FLUSH SCH (07:30)
[2017-10-11 08:00] VITALS: BP 112/63; PULSE 67; RESP 18; TEMP 97; O2SAT 96
[2017-10-11] MEDS: LACTOBACILLUS ACIDOPHILUS TAB PO SCH ×2 (08:04→12:19)
[2017-10-11] MEDS: NEBIVOLOL 2.5 MG TAB PO SCH (08:04)
--- NOTE | 2017-10-11 11:34 | HHI.PR ---
Subjective Subjective Notes feels better, focus of discomfort much smaller. Notes drainage decreasing. Good appetite, bowels and bladder working. Objective Vitals/I&O Vital Signs Date Time Temp Pulse Resp B/P (MAP) Pulse Ox O2 Delivery O2 Flow Rate FiO2 10/11/17 08:00 97.0 67 18 112/63 (79) 96 10/08/17 18:55 Room Air Labs Date/Time Source Procedure Growth Status 10/08/17 13:45 Blood Peripheral Aerobic Blood Culture - Preliminary NO GROWTH IN 3 DAYS Resulted 10/08/17 13:45 Blood Peripheral Anaerobic Blood Culture - Preliminary NO GROWTH IN 3 DAYS Resulted 10/09/17 15:30 Abscess Abdomen Gram Stain - Final Complete 10/09/17 15:30 Wound Culture - Final Escherichia Coli Mixed Anaerobes Complete Abdomen: Non-distended, Other (minor tenderness R LQ. Drain with dark brown purulent material.) Extremities: No edema, Perfused A/P Assessment and Plan Postop lap appie at [facility] by Aminah. Postop abscess, s/p percutaneous drainage. Ecoli and anaerobes. Switch to oral antibiotics. Home with drain, he and can care for it. Scrip for augmentin, has pain meds at home. CT on Sunday to evaluate for any residual fl;uid collection, hope fro drain removal on Sunday in my Office. Lars Pierce MD Oct 11, 2017 11:34
[2017-10-11] MEDS ORDERED: AMOX875T2 PO ×2 (11:40→12:57)
[2017-10-11 12:00] VITALS: BP 121/61; PULSE 73; RESP 18; TEMP 98.2; O2SAT 93
--- NOTE | 2017-10-11 13:45 | HHI.PR ---
Subjective Remarks stable resting comfortably, no acute issue, continue following with surgery Afebrile Objective Vitals Vital Signs Date Time Temp Pulse Resp B/P (MAP) Pulse Ox O2 Delivery O2 Flow Rate FiO2 10/11/17 12:00 98.2 73 18 121/61 (81) 93 10/11/17 08:00 97.0 67 18 112/63 (79) 96 10/11/17 04:00 97.2 80 20 109/62 (78) 94 10/11/17 00:00 98.2 72 20 106/59 (75) 94 10/10/17 20:30 85 10/10/17 20:00 96.2 75 20 102/59 (73) 94 10/10/17 16:00 97.7 64 17 101/61 (74) 96 I/O 10/10/17 10/10/17 10/10/17 10/11/17 10/11/17 10/11/17 07:00 15:00 23:00 07:00 15:00 23:00 Intake Total 2878 ml 800 ml 1660 ml 1580 ml Output Total 385 ml 975 ml 300 ml Balance 2493 ml 800 ml 685 ml 1280 ml Intake Oral 240 ml 960 ml 480 ml IV Total 2638 ml 800 ml 700 ml 1100 ml Output Urine Total 325 ml 925 ml 300 ml Drainage Total 60 ml 50 ml # Voids 1 2 # Bowel Movements 0 Result Diagram: 10/10/17 0946 10/09/17 0624 Objective Remarks GENERAL: This is a well-nourished, well-developed patient, in no apparent distress. SKIN: No rashes, warm and dry HEAD: Atraumatic. Normocephalic. EYES: Pupils equal round and reactive. Extraocular motions intact. No scleral icterus. ENT: Nose without bleeding, or drainage, Airway patent. NECK: Trachea midline. Supple CARDIOVASCULAR: Regular rate and rhythm without murmurs, gallops, or rubs. RESPIRATORY: Fair air entry bilaterally. No wheezes, rales, or rhonchi. GASTROINTESTINAL: Abdomen soft, non-tender, nondistended. Positive bowel sounds MUSCULOSKELETAL: Extremities without clubbing, cyanosis, or edema. Pedal pulses appreciated NEUROLOGICAL: Awake and alert. Moves all extremity. Normal speech.no focal neurological deficit A/P Assessment and Plan 1/4/18: abscess drainage culture positive for mixed anaerobe fransico and Escherichia coli, will be discharged on aAugmentin 1. Abdominal abscess status post appendectomy CT of the abdomen/pelvis shows loculated collection in the right lower quadrant with gas bubbles patient services representative of an abscess WBC 17.1dropped to 11,000 General surgery consulted, appreciate recommendations Interventional radiology consulted status post CT-guided abscess drainage by IR today, Zosyn Monitor for signs of sepsis 2. Hypertension/CAD Continue home Bystolic reason aspirin postprocedure 3. Hyperlipidemia Continue home statin FEN: Nothing by mouth after midnight Electrolytes: Monitor and replete when necessary NS at 100 cc/hr Henry Yuna MD Oct 11, 2017 13:45
[2017-10-11] MEDS ORDERED: AMOXICILLIN/CLAVULANATE K 875 MG TAB PO SCH (21:00)
--- NOTE | 2017-10-12 09:21 | HHI.FF ---
Face to Face Verification Diagnosis: (1) Intra-abdominal abscess Home Health Nursing Order: Wound care and dressing changes Instructions: IR placed drain care and dressing around drain Please record output daily and bring to follow up visit on Sunday I have seen patient Kyree Guido on 10/12/17. My clinical findings support the need for the requested home health care services because: Limited ability to care for self High risk of falls I certify that my clinical findings support that this patient is homebound because: Post-op weakness Elinor Barrientos Oct 12, 2017 09:21
--- NOTE | 2017-10-16 16:47 | HHI.DS ---
Discharge Summary Admission Date Oct 08, 2017 at 18:33 Discharge Date: Oct 11, 2017 Admitting Diagnosis intra-abdominal abscess (1) Intra-abdominal abscess ICD Code: K65.1 - Peritoneal abscess Procedures abdominal abscess CT-guided drainage Brief History - From Admission 62-year-old male with a past medical history significant for hypertension, hyperlipidemia and CAD presents to the emergency department with intermittent fever/chills and abdominal pain since Sunday. The patient is status post laparoscopic appendectomy for perforated appendicitis at [facility] on . He denies any nausea/vomiting. Vital signs on arrival to the emergency department temperature 98.7, pulse 83, respiratory rate 24, BP 128/76 pulse ox 97% on room air. CT of the abdomen/pelvis shows loculated collection in the right lower quadrant with gas bubbles event sales representative of abscess. PE at Discharge GENERAL: This is a well-nourished, well-developed patient, in no apparent distress. SKIN: No rashes, warm and dry HEAD: Atraumatic. Normocephalic. EYES: Pupils equal round and reactive. Extraocular motions intact. No scleral icterus. ENT: Nose without bleeding, or drainage, Airway patent. NECK: Trachea midline. Supple CARDIOVASCULAR: Regular rate and rhythm without murmurs, gallops, or rubs. RESPIRATORY: Fair air entry bilaterally. No wheezes, rales, or rhonchi. GASTROINTESTINAL: Abdomen soft, non-tender, nondistended. Positive bowel sounds MUSCULOSKELETAL: Extremities without clubbing, cyanosis, or edema. Pedal pulses appreciated NEUROLOGICAL: Awake and alert. Moves all extremity. Normal speech.no focal neurological deficit Hospital Course 62 years old male admitted with Abdominal abscess status post appendectomy CT of the abdomen/pelvis shows loculated collection in the right lower quadrant with gas bubbles event sales representative of an abscess WBC 17.1dropped to 11,000,General surgery consulted,Interventional radiology consulted status post CT-guided abscess drainage by IR today, IV antibiotic on Zosyn, abscess drainage culture positive for mixed anaerobe fransico and Escherichia coli, will be discharged on Augmentin recommended by surgery [id number] encounter performed with the patient on discharge day, as well as physical exam, summary of hospitalization course and postdischarge plan has been D/W the patient. D/W nurse D/W disease case manager Discharge medications reviewed and printed and signed, post discharge follow up visit with PCP and other specialist as well as Brief hospital course and discharge summary has been placed. Pt Condition on Discharge: Fair Discharge Disposition: Discharge Home Discharge Time: > 30 minutes Discharge Instructions DIET: Follow Instructions for: Heart Healthy Diet Activities you can perform: Weight Bearing as Gerald Follow up Referrals: Surgical - 10/16/17 with Lars Pierce MD Appt set for Oct 16 at 10:30AM New Medications: Amoxicillin-Clavulanate (Amoxicillin-Clavulanate) 875-125 mg Tab 500 MG PO TID for Infection for 10 Days, TAB not for use in CrCl <30 mL/minute Henry Yuan MD Oct 16, 2017 16:47
== END 2017-10-11 15:11 | disposition home or self-care (01) | DRG 862 ==
LOC: NEPC 12:57 → NEDA 18:33 → N07B 19:28
PROVIDERS: ADMIT Hospitalist; ATTEND Hospitalist
PROC: 0W9G30Z Drainage of Peritoneal Cavity with Drainage Device, Percutaneous Approach (ICD-10-PCS; principal; 2017-10-09)
DX: T81.4XXA Infection following a procedure, initial encounter (principal); K65.1 Peritoneal abscess; I25.10 Atherosclerotic heart disease of native coronary artery without angina pectoris; I10 Essential (primary) hypertension; E88.09 Other disorders of plasma-protein metabolism, not elsewhere classified; E78.5 Hyperlipidemia, unspecified; B96.20 Unspecified Escherichia coli [E. coli] as the cause of diseases classified elsewhere; Z16.29 Resistance to other single specified antibiotic; Z90.49 Acquired absence of other specified parts of digestive tract; Z95.5 Presence of coronary angioplasty implant and graft
CPT/HCPCS: 10160; 49405; 74177; 80048; 80053; 83605; 85025; 85610; 85730; 87040; 87070; 87077; 87185; 87186; 87205; 99152; 99153; C1729; C1769; J2250; J2270; J2543; J3010; J7030; Q9963; Q9967

== ENCOUNTER 2018-07-13 12:02 | Observation (INO) ==
--- NOTE | 2018-07-13 12:43 | ED ---
HPI General Chief Complaint: Chest Pain Stated Complaint: chest pain Time Seen by Provider: 07/13/18 12:21 History of Present Illness HPI narrative: This patient complains of chest pain. Today he has had 2 hours of sternal pressure and heaviness. He had stress testing 3 months ago with his adult and pediatric neurologist Dr. Jose Mccollum. He does have CAD. He had a stent placed in his LAD in 2008. Severity was moderate. He is currently pain-free. No alleviating factors. No exacerbating factors. He takes a baby aspirin twice daily and took it this morning Related Data Home Medications Medication Instructions Recorded Confirmed aspirin [Aspir-81] 81 mg PO BID 07/13/18 07/13/18 atorvastatin 40 mg PO DAILY 07/13/18 07/13/18 coenzyme Q10 [Co Q-10] 30 mg PO DAILY 07/13/18 07/13/18 glucosamine bentley 2KCl-chondroit 1 cap PO DAILY 07/13/18 07/13/18 [Glucosamine Sulf-Chondroitin] magnesium 30 mg PO DAILY 07/13/18 07/13/18 nebivolol [Bystolic] 2.5 mg PO DAILY 07/13/18 07/13/18 olive leaf extract 250 mg PO DAILY 07/13/18 07/13/18 omega 2-mvw-qnj-fish oil [Fish Oil] 1,000 mg PO DAILY 07/13/18 07/13/18 rzojp-1t-mut-epa-fish oil-D3 1,150 mg PO DAILY 07/13/18 07/13/18 [[place] Essentials] Allergies Allergy/AdvReac Type Severity Reaction Status Date / Time No Known Allergies AdvReac Unknown Uncoded 10/08/17 13:40 Review of Systems ROS: all other systems reviewed are negative PMFSH Medical History Medical History CAD (coronary artery disease) (Acute) HTN (hypertension) (Acute) Hypercholesteremia (Acute) Sleep apnea (Acute) Surgical History Surgical History Hx of appendectomy (Acute) Presence of stent in coronary artery (Acute) Social History Social History Substance History: No History of Abuse Smoking Status: Former smoker How Often Do You Have a Drink Containing Alcohol: 4 or more times a week Recent Travel in [facility] within the Last 8 Weeks: No Recent Out of Country Travel within the Last 8 Weeks: No Exam Narrative Exam Narrative: GENERAL: Well-nourished, well-developed patient in no apparent distress. SKIN: Focused skin assessment reveals no rash and nodules. Skin is Warm and dry. HEAD: Atraumatic. Normocephalic. EYES: Pupils equal and round. No scleral icterus. No injection or drainage. ENT: No nasal bleeding or discharge. Mucous membranes pink and moist. NECK: Trachea midline. No JVD. CARDIOVASCULAR: Regular rate and rhythm. No murmur appreciated. RESPIRATORY: No accessory muscle use. Clear to auscultation. Breath sounds equal bilaterally. GASTROINTESTINAL: Abdomen soft, non-tender, nondistended. Hepatic and splenic margins not palpable. MUSCULOSKELETAL: No obvious deformities. No clubbing. No cyanosis. No edema. NEUROLOGICAL: Awake and alert. No obvious cranial nerve deficits. Motor grossly within normal limits. Normal speech. PSYCHIATRIC: Appropriate mood and affect; insight and judgment normal. Course Initial Documented Vital Signs Temperature 97.9 F 07/13/18 12:13 Pulse Rate 73 07/13/18 12:13 Respiratory Rate 20 07/13/18 12:13 Blood Pressure 142/67 H 07/13/18 12:13 Pulse Oximetry 97 07/13/18 12:13 Last Documented Vital Signs Temperature 97.9 F 07/13/18 12:13 Pulse Rate 70 07/13/18 14:20 Respiratory Rate 18 07/13/18 14:20 Blood Pressure 123/71 07/13/18 14:20 Pulse Oximetry 98 07/13/18 14:20 Medical Decision Making MDM Narrative Medical decision making narrative: This is a 63-year-old male with history of CAD and stenting of the LAD who complains of 2 hours of chest pressure. Cardiac workup has been initiated with EKG and chest x-ray and labs and monitoring. I reviewed the EKG which shows sinus rhythm but no ST elevation. Initial work appears negative including labs and x-ray and EKG or acute changes. He will be a 23-hour observation on telemetry. I reviewed with the hospitalist. Medical Screen Exam Complete: Yes Emergency Medical Condition: Yes Differential Diagnosis Differential Diagnosis: Differential diagnosis includes IA, angina, pericarditis , pleurisy, GERD, anxiety. Medical Records Medical records reviewed: Yes I reviewed the patient's medical records. Lab Data Lab results reviewed: Yes I reviewed the patient's lab results. Lab results narrative: Initial set of cardiac enzymes as well as initial CBC and metabolic studies are normal Result diagrams: 07/13/18 12:45 07/13/18 12:45 Lab Results 07/13/18 07/13/18 Range/Units 12:45 12:45 WBC 5.8 (4.0-11.0) th/mm3 RBC 4.64 (4.50-5.90) mil/mm3 Hgb 14.9 (13.0-17.0) gm/dL Hct 43.0 (39.0-51.0) % MCV 92.7 (80.0-100.0) fL MCH 32.0 (27.0-34.0) pg MCHC 34.5 (32.0-36.0) % RDW 13.2 (11.6-17.2) % Plt Count 223 (150-450) th/mm3 MPV 8.1 (7.0-11.0) fL Neut % (Auto) 60.9 (16.0-70.0) % Lymph % (Auto) 27.2 (9.0-44.0) % [place] % (Auto) 9.2 H (0.0-8.0) % Eos % (Auto) 2.1 (0.0-4.0) % Baso % (Auto) 0.6 (0.0-2.0) % Neut # (Auto) 3.5 (1.8-7.7) th/mm3 Lymph # (Auto) 1.6 (1.0-4.8) th/mm3 [place] # (Auto) 0.5 (0.0-0.9) th/mm3 Eos # (Auto) 0.1 (0.0-0.4) th/mm3 Baso # (Auto) 0.0 (0.0-0.2) th/mm3 WBC Differential . Differential Comment Auto diff final Sodium 142 (136-145) meq/L Potassium 4.3 (3.5-5.1) meq/L Chloride 107 (98-107) meq/L Carbon Dioxide 26.7 (21.0-32.0) meq/L Anion Gap 8 (5-15) meq/L BUN 14 (7-18) mg/dL Creatinine 0.96 (0.60-1.30) mg/dL Estimated GFR 79 L (>89) mL/min Random Glucose 93 (74-106) mg/dL Calcium 8.9 (8.5-10.1) mg/dL Total Bilirubin 0.3 (0.2-1.0) mg/dL AST 30 (15-37) U/L ALT 33 (12-78) U/L Alkaline Phosphatase 87 (45-117) U/L Total Creatine Kinase 162 (39-308) U/L CK-MB (CK-2) 2.3 (0.5-3.6) ng/mL Troponin I Less than 0.02 L (0.02-0.05) ng/mL Total Protein 7.2 (6.4-8.2) g/dL Albumin 3.8 (3.4-5.0) g/dL Imaging Data Attestation: I personally reviewed and interpreted this imaging study as follows : My impression: Normal chest x-ray Radiologist's impression: Chest X-Ray 07/13/18 12:35 CONCLUSION: No acute intrathoracic disease. Stable examination. ECG Data EKG Prior to Arrival: No Attestation: I personally reviewed and interpreted this ECG as follows: Prior ECG tracings: not available for review Interpretation: EKG shows sinus rhythm with a normal rate and axis and SD interval. There are no ST elevations. Discharge Plan Discharge Disposition Patient Disposition: 30 Still Patient Discharge Details Diagnosis: Chest pain in adult Physicians Team ED Provider: Scott Miller Primary Care Provider: Castro Durand Rxs /Orders / Referrals /Forms Prescriptions: No Action atorvastatin 40 mg Tablet 40 mg PO DAILY RF: 0 coenzyme Q10 [Co Q-10] 10 mg Capsule 30 mg PO DAILY RF: 0 aspirin [Aspir-81] 81 mg Tablet,Delayed Release (Dr/Ec) 81 mg PO BID RF: 0 magnesium 30 mg Tablet 30 mg PO DAILY RF: 0 glucosamine bentley 2KCl-chondroit [Glucosamine Sulf-Chondroitin] 500-400 mg Capsule 1 cap PO DAILY RF: 0 nebivolol [Bystolic] 2.5 mg Tablet 2.5 mg PO DAILY RF: 0 omega 0-jax-kbk-fish oil [Fish Oil] 1,000 mg (120 mg-180 mg) Capsule 1,000 mg PO DAILY RF: 0 olive leaf extract 250 mg Capsule 250 mg PO DAILY RF: 0 ioipq-2e-afj-epa-fish oil-D3 [[place] Essentials] 1,150 mg-1,000 unit/5 mL Liquid 1,150 mg PO DAILY RF: 0 Discharge Instructions Patient Printed Instructions: Chest Pain (ED) Discharge Interventions Interventions: Vital Signs Last Done: 07/13/18 14:20 Status ED Status: With Doctor
--- NOTE | 2018-07-13 13:00 | XR ---
EXAM DATE: 07/13/2018 12:35 PM EDT AGE/SEX: 63 years / Male INDICATIONS: Chest pain and tightness. CLINICAL DATA: This is the patient's initial encounter. Patient reports that signs and symptoms have been present for 1 day and indicates a pain score of 2/10. MEDICAL/SURGICAL HISTORY: None. . Appendectomy. Rt Knee Surgery, Coronary Stent COMPARISON: [facility] [place], 02/13/2013. . FINDINGS: A single AP view of the chest demonstrates the lungs to be symmetrically aerated without evidence of mass, infiltrate or effusion. The cardiomediastinal contours are unremarkable. Osseous structures a re intact. CONCLUSION: No acute intrathoracic disease. Stable examination. Electronically signed by: Gael Bell MD 07/13/2018 12:58 PM EDT
[2018-07-13 13:03] LABS: Baso % (Auto) 0.6 % (0.0-2.0); Eos # (Auto) 0.1 th/mm3 (0.0-0.4); Eos % (Auto) 2.1 % (0.0-4.0); Hemoglobin 14.9 gm/dL (13.0-17.0); Lymph # (Auto) 1.6 th/mm3 (1.0-4.8); Lymph % (Auto) 27.2 % (9.0-44.0); Mean Corpuscular HGB Conc 34.5 % (32.0-36.0); Mean Corpuscular Volume 92.7 fL (80.0-100.0); Mean Platelet Volume 8.1 fL (7.0-11.0); Mono # (Auto) 0.5 th/mm3 (0.0-0.9); Mono % (Auto) 9.2 % (0.0-8.0); Neut # (Auto) 3.5 th/mm3 (1.8-7.7); Neut % (Auto) 60.9 % (16.0-70.0); Platelet Count 223 th/mm3 (150-450); Red Blood Count 4.64 mil/mm3 (4.50-5.90); Red Cell Distribution Width 13.2 % (11.6-17.2); White Blood Count 5.8 th/mm3 (4.0-11.0)
[2018-07-13 13:18] LABS: Alanine Aminotransferase 33 U/L (12-78)
[2018-07-13 13:22] LABS: Alkaline Phosphatase 87 U/L (45-117); Creatine Kinase 162 U/L (39-308); Total Protein 7.2 g/dL (6.4-8.2)
[2018-07-13 13:25] LABS: Albumin 3.8 g/dL (3.4-5.0); Anion Gap 8 meq/L (5-15); Aspartate Aminotransferase 30 U/L (15-37); Blood Urea Nitrogen 14 mg/dL (7-18); Calcium 8.9 mg/dL (8.5-10.1); Carbon Dioxide 26.7 meq/L (21.0-32.0); Chloride 107 meq/L (98-107); Glomerular Filtration Rate 79 mL/min (>89); Glucose,Random 93 mg/dL (74-106); Potassium 4.3 meq/L (3.5-5.1); Sodium 142 meq/L (136-145)
[2018-07-13 13:34] LABS: Creatine Kinase MB 2.3 ng/mL (0.5-3.6)
[2018-07-13] MEDS ORDERED: Aspirin 325 MG Tablet PO ONE (15:48)
[2018-07-13] MEDS ORDERED: Morphine Sulfate Inj 2 MG/ML Vial IV.PUSH PRN (15:49)
[2018-07-13] MEDS ORDERED: Iohexol 350 MG/ML 50 ML Vial (for Cath Lab) IVCONTRAST ONE (15:54)
[2018-07-13] MEDS ORDERED: Iohexol 350 MG/ML 100 ML Vial (for Cath Lab) IVCONTRAST ONE (15:54)
--- NOTE | 2018-07-13 16:02 | P.HPIM ---
History of Present Illness Primary Care Physician: Castro Durand MD Chief Complaint: Chest pressure History of Present Illness: This patient is a 63-year-old male with a diagnosis of coronary artery disease status post stent of the LAD in 2008, a repeat stent in the LAD in 2011 as per the patient. He follows up with service writer Dr. Mccollum with [facility]. The patient states he had a nuclear stress test done a couple of months ago which was inconclusive. He denies having any history of chest pain on exertion or at rest however this morning he had 2 cups of coffee and was ambulating at home. He then began to have left-sided chest pressure with some radiation to the left side of his neck. He discussed the situation with his and they then decided to come to the emergency department for evaluation. He denied having any nausea or vomiting, no shortness of breath. Past medical history coronary artery disease status post stent of the LAD in 2008 and in 2011. Surgical history perforated appendix in 2018. Intra-abdominal abscess drainage in 2018 after the initial perforated appendix. Family history significant for CABG in his mother after the age of 65. His brother has had 2 strokes, he is unsure at what age his brother had the strokes. Social history the patient states he smoked a few cigarettes socially in his younger years. Drinks alcohol socially. Denies any history of drug use. Allergies no known drug allergies Medications aspirin 81 mg p.o. daily Bystolic 10 mg p.o. daily Lipitor 40 mg p.o. nightly Review of Systems All other systems reviewed negative except as stated in HPI [facility] - History History Provided By: Patient - Medical History Medical History: Medical History (Last Reviewed 07/13/18 @ 16:03 by Antionette García MD) CAD (coronary artery disease) HTN (hypertension) Hypercholesteremia Sleep apnea - Surgical History Surgical History: Surgical History (Last Reviewed 07/13/18 @ 16:03 by Antionette García MD) Hx of appendectomy Presence of stent in coronary artery - Tobacco History Smoking Status: Former smoker - Alcohol History How Often Do You Have a Drink Containing Alcohol: 4 or more times a week - Substance Use History Substance History: No History of Abuse - Travel History Recent Travel in the [place] Within the Last 8 Weeks: No Recent Travel Out of the Country Within the Last 8 Weeks: No - Immunization History Tetanus Immunization: Unsure Medications and Allergies Active Medications: Active Medications Aspirin (Aspirin) 325 mg PO ONCE ONE Stop: 07/13/18 15:49 Aspirin (Aspirin Chew) 81 mg PO DAILY NADINE Atorvastatin Calcium (Lipitor) 40 mg PO HS NADINE Morphine Sulfate (Morphine Inj) 2 mg IV.PUSH Q4H PRN PRN Reason: PAIN SCALE 6 TO 10 Nebivolol (Bystolic) 10 mg PO DAILY NADINE Nitroglycerin (Nitrostat Sl) 0.4 mg SL Q5M PRN PRN Reason: CHEST PAIN Sodium Chloride (Ns Flush) 2 ml IV.FLUSH UNSCH PRN PRN Reason: FLUSH AFTER USING IV ACCESS Allergies Allergy/AdvReac Type Severity Reaction Status Date / Time No Known Allergies AdvReac Unknown Uncoded 10/08/17 13:40 Home Medications Medication Instructions Recorded Confirmed Type aspirin [Aspir-81] 81 mg PO BID 07/13/18 07/13/18 History atorvastatin 40 mg PO DAILY 07/13/18 07/13/18 History coenzyme Q10 [Co Q-10] 30 mg PO DAILY 07/13/18 07/13/18 History glucosamine betnley 2KCl-chondroit 1 cap PO DAILY 07/13/18 07/13/18 History [Glucosamine Sulf-Chondroitin] magnesium 30 mg PO DAILY 07/13/18 07/13/18 History nebivolol [Bystolic] 2.5 mg PO DAILY 07/13/18 07/13/18 History olive leaf extract 250 mg PO DAILY 07/13/18 07/13/18 History omega 6-lzg-yja-fish oil [Fish Oil] 1,000 mg PO DAILY 07/13/18 07/13/18 History bxnkl-1g-fgj-epa-fish oil-D3 1,150 mg PO DAILY 07/13/18 07/13/18 History [[place] Essentials] Exam Vital signs: Vital Signs 07/13/18 12:13 07/13/18 12:31 07/13/18 12:38 Temperature 97.9 F Pulse Rate 73 66 Respiratory Rate 20 12 Blood Pressure 142/67 H 144/93 H Pulse Oximetry 97 97 96 07/13/18 12:42 07/13/18 14:20 Temperature Pulse Rate 70 Respiratory Rate 18 Blood Pressure 123/71 Pulse Oximetry 97 98 Intake & Output 07/12/18 07/13/18 07/13/18 18:59 06:59 18:59 Weight 120.202 kg Narrative: General patient in no acute distress HEENT extraocular movements are intact, clear oropharyngeal mucosa, no JVD Cardiovascular S1-S2 audible, no reproducible chest pain on palpation. No active chest pain. Respiratory clear to auscultation bilaterally Abdomen soft, nontender, nondistended, normal bowel sounds Extremities no edema 2+ distal pulses in bilateral upper and lower extremities Neuro cranial nerves II through XII intact Results - Labs CBC & Chem 7: 07/13/18 12:45 07/13/18 12:45 Labs: Short CBC 07/13/18 Range/Units 12:45 WBC 5.8 (4.0-11.0) th/mm3 Hgb 14.9 (13.0-17.0) gm/dL Hct 43.0 (39.0-51.0) % Plt Count 223 (150-450) th/mm3 BMP 07/13/18 12:45 Sodium 142 Potassium 4.3 Chloride 107 Carbon Dioxide 26.7 BUN 14 Creatinine 0.96 Calcium 8.9 Cardiac Enzymes 07/13/18 Range/Units 12:45 Total Creatine Kinase 162 (39-308) U/L CK-MB (CK-2) 2.3 (0.5-3.6) ng/mL Troponin I Less than 0.02 L (0.02-0.05) ng/mL Liver Function 07/13/18 Range/Units 12:45 Total Bilirubin 0.3 (0.2-1.0) mg/dL AST 30 (15-37) U/L ALT 33 (12-78) U/L Alkaline Phosphatase 87 (45-117) U/L Albumin 3.8 (3.4-5.0) g/dL - Imaging Impressions Chest X-Ray 07/13/18 12:35 CONCLUSION: No acute intrathoracic disease. Stable examination. Caprini VTE Risk Assessment Caprini VTE Risk Assessment: Moderate/High Risk (score >= 2) Caprini Risk Assessment Model: Point Value = 1 Point Value = 2 Point Value = 3 Point Value = 5 Age 41-60 Minor surgery BMI > 25 kg/m2 Swollen legs Varicose veins or History of unexplained or recurrent spontaneous Oral contraceptives or hormone replacement Sepsis (< 1 month) Serious lung disease, including pneumonia (< 1 month) Abnormal pulmonary function Acute myocardial infarction Congestive heart failure (< 1 month) History of inflammatory bowel disease Medical patient at bed rest Age 61-74 Arthroscopic surgery Major open surgery (> 45 min) Laparoscopic surgery (> 45 min) Malignancy Confined to bed (> 72 hours) Immobilizing plaster cast Central venous access Age >= 75 History of VTE Family history of VTE Factor V Leiden Prothrombin [id number] Lupus anticoagulant Anticardiolipin antibodies Elevated serum homocysteine Heparin-induced thrombocytopenia Other congenital or acquired thrombophilia Stroke (< 1 month) Elective arthroplasty Hip, pelvis, or leg fracture Acute spinal cord injury (< 1 month) Prophylaxis Regimen: Total Risk Factor Score Risk Level Prophylaxis Regimen 0-1 Low Early ambulation 2 Moderate Order ONE of the following: *Sequential Compression Device (SCD) *Heparin 5000 units SQ BID 3-4 Higher Order ONE of the following medications: *Heparin 5000 units SQ TID *Enoxaparin/Lovenox 40 mg SQ daily (WT < 150 kg, CrCl > 30 mL/min) *Enoxaparin/Lovenox 30 mg SQ daily (WT < 150 kg, CrCl > 10-29 mL/min) *Enoxaparin/Lovenox 30 mg SQ BID (WT < 150 kg, CrCl > 30 mL/min) AND/OR *Sequential Compression Device (SCD) 5 or more Highest Order ONE of the following medications: *Heparin 5000 units SQ TID (Preferred with Epidurals) *Enoxaparin/Lovenox 40 mg SQ daily (WT < 150 kg, CrCl > 30 mL/min) *Enoxaparin/Lovenox 30 mg SQ daily (WT < 150 kg, CrCl > 10-29 mL/min) *Enoxaparin/Lovenox 30 mg SQ BID (WT < 150 kg, CrCl > 30 mL/min) AND *Sequential Compression Device (SCD) Assessment and Plan - Plan This patient is a 63-year-old male with a diagnosis of coronary artery disease status post stent of the LAD in 2008, a repeat stent in the LAD in 2011 as per the patient. He follows up with service writer Dr. Mccollum with [facility]. The patient states he had a nuclear stress test done a couple of months ago which was inconclusive. He denies having any history of chest pain on exertion or at rest however this morning he had 2 cups of coffee and was ambulating at home. He then began to have left-sided chest pressure with some radiation to the left side of his neck. He discussed the situation with his and they then decided to come to the emergency department for evaluation. He denied having any nausea or vomiting, no shortness of breath. 1. Chest pain concern for ACS The patient's chest pain has completely resolved. He now does not complain of any chest pain. EKG shows normal sinus rhythm no acute ST segment or T wave changes. Initial set of troponins and cardiac enzymes are negative. We will follow-up at least another 2 sets of cardiac enzymes and troponins. EKGs will also be followed up. Cardiology has been consulted, given the patient's recent inconclusive nuclear stress test the patient will likely require a heart catheterization. Follow-up with cardiology for specific recommendations. The patient will be admitted and monitored on telemetry. He was given aspirin 325 mg. Continue aspirin, beta-cam, statin. Nitroglycerin will be given if the patient develops chest pain. Morphine as needed. Cardiac diet Heparin for DVT prophylaxis.
[2018-07-13 19:50] LABS: Creatine Kinase 128 U/L (39-308)
[2018-07-13] MEDS: Heparin - SQ 10,000 UNITS/ML Vial SQ SCH (21:05)
[2018-07-14 01:34] LABS: Creatine Kinase 112 U/L (39-308)
[2018-07-14] MEDS: Heparin - SQ 10,000 UNITS/ML Vial SQ SCH ×2 (09:27→20:06)
--- NOTE | 2018-07-14 09:51 | ECG ---
Date Performed: 07/14/2018 Time Performed: 04:01:40 PTAGE: 63 years EKG: Sinus bradycardia Septal T wave changes are nonspecific Low QRS voltages in limb leads Bord leyla ECG PREVIOUS TRACING : 07/13/2018 21.51 DOCTOR: Sandra Loja Interpretating Date/Time 07/14/2018 09:49:27
--- NOTE | 2018-07-14 09:55 | ECG ---
Date Performed: 07/13/2018 Time Performed: 21:51:04 PTAGE: 63 years EKG: Sinus rhythm Septal T wave changes are nonspecific Low QRS voltages in limb leads Borderline ECG PREVIOUS TRACING : 07/13/2018 12.28 DOCTOR: Sandra Loja Interpretating Date/Time 07/14/2018 09:53:27
--- NOTE | 2018-07-14 10:05 | ECG ---
Date Performed: 07/13/2018 Time Performed: 12:28:45 PTAGE: 63 years EKG: ECTOPIC ATRIAL RHYTHM INFERIOR MYOCARDIAL INFARCTION ABNORMAL ECG NO PREVIOUS TRACING DOCTOR: Sandra Loja Interpretating Date/Time 07/14/2018 10:03:27
--- NOTE | 2018-07-14 15:17 | MB ---
cc: Sandra Loja MD, Dr. DATE: 07/14/2018 CARDIOLOGY CONSULTATION REASON FOR CONSULTATION: Angina. HISTORY OF PRESENT ILLNESS: Mr. Guido is a 63-year-old gentleman with history of coronary artery disease; had a PTCA plus stent [place] [address] Mccollum. 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 He was having on and off chest tightness. Yesterday, he had chest pressure with radiating to his neck. He decided to come to the emergency room. Since hospitalization, his condition had significantly improved and I was consulted for evaluation and management. The chart was reviewed. The patient was evaluated. ALLERGIES: NONE REPORTED. SOCIAL HISTORY: Currently negative for smoking and drinking. FAMILY HISTORY: Noncontributory to his current medical condition. MEDICATIONS AT HOME: He was on: 1. Aspirin. 2. Bystolic. 3. Lipitor. 4. During hospitalization, heparin was added, as well as nitro paste. REVIEW OF SYSTEMS: Currently, referred no chest pain. No change to follow fever. PHYSICAL EXAMINATION: GENERAL: Alert, fully oriented, pleasant. VITAL SIGNS: His blood pressure is 117/70, pulse 59, respiratory rate 18. LUNGS: Ventilated. CARDIOVASCULAR: S1, S2. No gallop. No murmur. ABDOMEN: Soft. No mass. No bruits. EXTREMITIES: With no edema. ELECTROCARDIOGRAM: Sinus rhythm. No acute ST or T-wave changes. LABORATORY DATA: Hemoglobin is 14.9, white blood cell 5.8. Potassium 4.3, creatinine 0.96. Troponin less than 0.02. ASSESSMENT AND RECOMMENDATIONS: Mr. Guido currently is stable. He has no chest pain. What he described is typical angina episode, chest tightness with radiation to the neck and some shortness of breath. He has previous percutaneous transluminal coronary angioplasty plus stent to left anterior descending. Also, he had a nuclear stress test a couple of months ago that was nonconclusive. He has strong family history of coronary artery disease. I had a strong conversation with him. At this point, this gentleman may need a left heart catheterization. That decision will be taken by Dr. Mccollum in the morning. I agree with the current management. After multiple conversations, the gentleman decided to stay in the hospital and be evaluated in the morning by Dr. Mccollum. I will monitor him during hospitalization. MD Keyonna Garcia , 02:24 PM , 02:31 PM
--- NOTE | 2018-07-14 20:52 | P.PNIM ---
Subjective Interval history: Pt is comfortable. He has no complaints. No chest pain. Physical Exam Vital signs: Vital Signs 07/13/18 21:00 07/13/18 22:00 07/13/18 23:00 Temperature Pulse Rate 58 L 60 55 L Respiratory Rate Blood Pressure Pulse Oximetry 07/14/18 00:00 07/14/18 01:00 07/14/18 02:00 Temperature 97.9 F Pulse Rate 52 L 52 L 52 L Respiratory Rate 16 Blood Pressure 115/65 Pulse Oximetry 99 07/14/18 03:00 07/14/18 04:00 07/14/18 05:00 Temperature 98.0 F Pulse Rate 46 L 48 L 50 L Respiratory Rate 14 Blood Pressure 112/67 Pulse Oximetry 98 07/14/18 06:00 07/14/18 07:00 07/14/18 08:00 Temperature 98.1 F Pulse Rate 53 L 66 65 Respiratory Rate 16 Blood Pressure 118/65 Pulse Oximetry 97 07/14/18 08:33 07/14/18 09:00 07/14/18 10:00 Temperature Pulse Rate 71 67 Respiratory Rate Blood Pressure Pulse Oximetry 92 L 07/14/18 11:00 07/14/18 11:20 07/14/18 12:00 Temperature 97.9 F Pulse Rate 56 L 58 L 57 L Respiratory Rate 16 Blood Pressure 117/70 Pulse Oximetry 97 07/14/18 13:00 07/14/18 14:00 07/14/18 15:00 Temperature Pulse Rate 62 59 L 61 Respiratory Rate Blood Pressure Pulse Oximetry 07/14/18 15:22 07/14/18 16:00 07/14/18 17:00 Temperature 98 F Pulse Rate 86 58 L 61 Respiratory Rate 18 Blood Pressure 148/85 H Pulse Oximetry 100 07/14/18 18:00 07/14/18 19:00 07/14/18 20:00 Temperature 98.3 F Pulse Rate 64 63 67 Respiratory Rate 18 Blood Pressure 131/83 Pulse Oximetry 97 Intake & Output 07/14/18 07/14/18 07/15/18 06:59 18:59 06:59 Intake Total 240 / 240 720 / 720 Output Total 600 / 600 2024 Balance -360 / -360 -1305 / -1305 Weight 120.5 kg Intake: Oral 240 / 240 720 / 720 Output: Urine 600 / 600 2024 Other: Date of Last Bowel Movement 07/14/18 # Bowel Movements 1 Narrative: General patient in no acute distress HEENT extraocular movements are intact, clear oropharyngeal mucosa, no JVD Cardiovascular S1-S2 audible, no reproducible chest pain on palpation. No active chest pain. No chest wall tenderness on palpation. Respiratory clear to auscultation bilaterally Abdomen soft, nontender, nondistended, normal bowel sounds Extremities no edema 2+ distal pulses in bilateral upper and lower extremities Neuro cranial nerves II through XII intact Results - Labs CBC & Chem 7: 07/13/18 12:45 07/13/18 12:45 Laboratory Results - last 24 hr 07/14/18 00:55 Total Creatine Kinase 112 Troponin I Less than 0.02 L Assessment and Plan - Plan This patient is a 63-year-old male with a diagnosis of coronary artery disease status post stent of the LAD in 2008, a repeat stent in the LAD in 2011 as per the patient. He follows up with ballpoint pen assembly machine operator Dr. Mccollum with [facility]. The patient states he had a nuclear stress test done a couple of months ago which was inconclusive. He denies having any history of chest pain on exertion or at rest however this morning he had 2 cups of coffee and was ambulating at home. He then began to have left-sided chest pressure with some radiation to the left side of his neck. He discussed the situation with his and they then decided to come to the emergency department for evaluation. He denied having any nausea or vomiting, no shortness of breath. 1. Chest pain concern for ACS The patient's chest pain has completely resolved. No episodes of chest pain overnight. EKG shows normal sinus rhythm no acute ST segment or T wave changes. CE and Trops negative Cardiology evaluated the patient, and because of the typical chest pain and the patients cardiac history he will be kept in house for a possible cardiac cath tomorrow. Keep pt. NPO pmn. Monitor on tele. Continue asa, statin, bb. Heparin for DVT prophylaxis.
[2018-07-15 05:49] LABS: Prothrombin Time 10.6 sec (9.8-11.6)
[2018-07-15 06:04] LABS: Calcium 8.6 mg/dL (8.5-10.1); Carbon Dioxide 28.2 meq/L (21.0-32.0); Magnesium 2.3 mg/dL (1.5-2.5); Potassium 4.4 meq/L (3.5-5.1)
[2018-07-15] MEDS ORDERED: diazePAM 5 MG Tablet PO SCH (08:00)
[2018-07-15 08:06] VITALS: RESP 18
[2018-07-15] MEDS: Heparin - SQ 10,000 UNITS/ML Vial SQ SCH (08:07)
[2018-07-15] MEDS: Sod Chloride 0.9% Inj 1,000 ML IV.CONT SCH ×2 (09:45→17:15)
[2018-07-15] MEDS ORDERED: Heparin/NS PF Inj 1,000 ML ONE (12:50)
[2018-07-15] MEDS ORDERED: Heparin 10,000 UNITS/10 ML Vial (for IV use) ONE (12:50)
[2018-07-15] MEDS ORDERED: fentaNYL Citrate Inj 100 MCG/2 ML Ampul ONE (13:20)
--- NOTE | 2018-07-15 14:09 | P.PN ---
Subjective Interval history: This is a pleasant 63 y/o male with CAD status post LAD stent in 2008 and repeated in 2011, Seen in his bedroom in the presence of his , discussed with nurse miss Draper, Status post left heart Cath, EF 50%, Left main coronary artery appears normal. Left anterior descending artery has a 99% proximal in-stent restenosis lesion. Then more distal in the mid LAD is a 20% stenosis. The remainder of the LAD has irregularities. Circumflex artery has about 10% narrowing of the proximal major obtuse marginal branch. The right coronary artery is dominant and has about 40% proximal disease. Following stenting of the proximal LAD, a 0% residual stenosis has been achieved. Critical stenosis in the proximal LAD inside of his old stents, now successfully stented with a drug-eluting stent. discharge on Aspirin and Effient not yet cleared by [facility] extension specialist Doctor Jose Mccollum. Physical Exam Vital signs: Vital Signs 07/14/18 15:00 07/14/18 15:22 07/14/18 16:00 Temperature 98 F Pulse Rate 61 86 58 L Respiratory Rate 18 Blood Pressure 148/85 H Pulse Oximetry 100 07/14/18 17:00 07/14/18 18:00 07/14/18 19:00 Temperature Pulse Rate 61 64 63 Respiratory Rate Blood Pressure Pulse Oximetry 07/14/18 20:00 07/14/18 21:00 07/14/18 22:00 Temperature 98.3 F Pulse Rate 67 58 L 56 L Respiratory Rate 18 Blood Pressure 131/83 Pulse Oximetry 97 07/14/18 23:00 07/15/18 00:00 07/15/18 01:00 Temperature 98.7 F Pulse Rate 62 58 L 54 L Respiratory Rate 16 Blood Pressure 109/82 Pulse Oximetry 96 07/15/18 02:00 07/15/18 03:00 07/15/18 04:00 Temperature 98.0 F Pulse Rate 60 66 60 Respiratory Rate 14 Blood Pressure 116/72 Pulse Oximetry 96 07/15/18 05:00 07/15/18 06:00 07/15/18 07:00 Temperature Pulse Rate 59 L 50 L 51 L Respiratory Rate Blood Pressure Pulse Oximetry 07/15/18 07:51 07/15/18 08:00 07/15/18 08:59 Temperature 97.7 F Pulse Rate 59 L 62 Respiratory Rate 18 Blood Pressure 123/65 Pulse Oximetry 96 95 07/15/18 09:00 07/15/18 10:00 07/15/18 10:52 Temperature 97.5 F L Pulse Rate 54 L 54 L 58 L Respiratory Rate 18 Blood Pressure 120/65 Pulse Oximetry 97 07/15/18 11:00 07/15/18 12:00 Temperature Pulse Rate 60 50 L Respiratory Rate Blood Pressure Pulse Oximetry Intake & Output 07/14/18 07/15/18 07/15/18 18:59 06:59 18:59 Intake Total 720 / 720 240 / 240 Output Total 2024 500 / 500 Balance -1305 / -1305 -260 / -260 Weight 121.5 kg Intake: Oral 720 / 720 240 / 240 Output: Urine 2024 500 / 500 Other: Date of Last Bowel Movement 07/14/18 07/14/18 # Bowel Movements 1 Narrative: General patient in no acute distress HEENT extraocular movements are intact, clear oropharyngeal mucosa, no JVD Cardiovascular S1-S2 audible, no reproducible chest pain on palpation. No active chest pain. No chest wall tenderness on palpation. Respiratory clear to auscultation bilaterally Abdomen soft, nontender, nondistended, normal bowel sounds Extremities no edema 2+ distal pulses in bilateral upper and lower extremities, dressed inguinal area. Neuro cranial nerves II through XII intact Results - Labs CBC & Chem 7: 07/13/18 12:45 07/15/18 04:47 Laboratory Results - last 24 hr 07/15/18 07/15/18 04:47 04:47 PT 10.6 INR 1.0 Sodium 144 Potassium 4.4 Chloride 108 H Carbon Dioxide 28.2 Anion Gap 8 BUN 17 Creatinine 0.96 Estimated GFR 79 L Random Glucose 100 Calcium 8.6 Magnesium 2.3 Assessment and Plan - Plan This patient is a 63-year-old male with a diagnosis of coronary artery disease status post stent of the LAD in 2008, a repeat stent in the LAD in 2011 as per the patient. He follows up with grain blender Dr. Mccollum with [facility]. The patient states he had a nuclear stress test done a couple of months ago which was inconclusive. He denies having any history of chest pain on exertion or at rest however this morning he had 2 cups of coffee and was ambulating at home. He then began to have left-sided chest pressure with some radiation to the left side of his neck. He discussed the situation with his and they then decided to come to the emergency department for evaluation. He denied having any nausea or vomiting, no shortness of breath. 1. Unstable angina Status post left heart Cath, EF 50%, Left main coronary artery appears normal. Left anterior descending artery has a 99% proximal in-stent restenosis lesion. Then more distal in the mid LAD is a 20% stenosis. The remainder of the LAD has irregularities. Circumflex artery has about 10% narrowing of the proximal major obtuse marginal branch. The right coronary artery is dominant and has about 40% proximal disease. Following stenting of the proximal LAD, a 0% residual stenosis has been achieved. Critical stenosis in the proximal LAD inside of his old stents, now successfully stented with a drug-eluting stent. discharge on Aspirin and Effient not yet cleared by [facility] extension specialist Doctor Jose Mcocllum. Heparin for DVT prophylaxis. Code Status: Full code. Discussed Condition With: Patient and Nurse Miss Draper, and his present. Discharge Planning: Expected by tomorrow.
--- NOTE | 2018-07-15 14:23 | CATHPROC ---
[employer] HIS Report Study Information Study Number Scheduled Start Study Start [id number] 07/15/2018 Jul 15 2018 1:12PM Referring Institution Admit Source Facility Department 1 Emergency department [facility] - [employer] [employer] Physician and Clinical Staff Initial Jose Cheng Appeals Representativekristi Montoya RN, Ezra RecordDariana Juárez,RT(R) Scrub Nacho Felton RCIS(BS) Procedures Performed Procedure Location (Site) Vessel Name Angiogram LV LV Ventricle Coronary Angiograms LCA Left Coronary Coronary Angiograms RCA Right Coronary Drug Eluting Inflatio LAD Prox Left Coronary L Heart Cath PTCA LAD Prox Left Coronary Wire insertion Fem Art (right) Femoral Art Equipment Time Garment Mender Description Size Mfg Part Number Used/Scraped TRANSDUCER, TRUWAVE [id number] 13:19 PALMA DESAI * Used W/STOCKCOCK *[id number] BALLOON, 4.5 8MM NC QUANTUM [id number] 14:03 [employer]ENTIFIC 4.5 8MM Used APEX MR *[id number] INTRODUCER SET, 13:39 [employer] FR 5 [id number] *[id number] Used MICROPUNCTURE STIFF [id number] *[id number] [id number] *[id number] PIGTAIL ANG. 145 INFINITI [id number] CATHETER *[id number] *[id number] *[id number] 14:10 DAI/ST. STEPH MEDICAL ANGIOSEAL, FR6 VIP FR 6 Used *[id number] 13:19 [employer] BLANKET,WARM AIR CCL * Used *[id number] 13:19 [employer] PACK, CCL CUSTOM * Used *[id number] 13:19 [employer] PACER PEN, SKIN DUAL W/ RULER * Used *[id number] 13:57 MEDTRONIC STENT, 4.0 15MM SAMEERA 4.0 15MM Used *[id number] 13:59 [employer] MEDICAL 30 BENEDICTO INDEFLATOR Used *[id number] 13:19 [employer] MEDICAL SHEATH, FR6.5 PRELUDE 11CM FR 6.5 038ACT Used *[id number] 13:19 [employer] MEDICAL WIRE, 3MMJ .035 180CM 180CM Used *[id number] 13:19 [facility] MANIFOLD, 4 PORT * Used *[id number] 13:19 [employer]COMED OMNIPAQUE, 350 MG, 150ML 150ML [id number] Used 13:43 [employer]COMED OMNIPAQUE, 350 MG, 50ML 50ML [id number] Used Equipment Model, Serial, Lot Number and Expiration Data Description Model Number Serial Number Lot Number Expiration Date STENT, 4.0 15MM SAMEERA [id number] 12-01-2019 History: Current Medications Medication Dosage/Unit Route Frequency Last Date/Time Taken Statins (any) Beta Oleg ASA History: Allergies Allergy Reaction No Known Allergies History: Risk Factors Family History of Hypertension Dyslipidemia Previous ND Previous Heart Failure Premature CAD Yes Yes No No No Prior Valve Prior PCI Prior PCIDate Prior CABG Surgery No Yes 11/01/2011 No Cerebrovascular Peripheral Artery Chronic Lung On Dialysis Diabetes Disease Disease Disease No No No No No History: Symptoms/Diagnosis Selection Items Chest pain History: Other Disease Selection Items CAD HTN History: Other Current Smoker No Labs Hgb (g/dl) Hct (%) WBC (l/cumm) Platelets (thousands) 11.60-17.00 35.00-51.00 4.00-11.00 150.00-450.00 14.9 43 5.8 223 Glucose (mg/dl) BUN (mg/dl) Creatinine (mg/dl) BUN:Creatinine (1:x) 74.00-106.00 7.00-18.00 0.50-1.30 10.00-20.00 100 17 0.9 18.9 Na (meq/l) K (meq/l) 136.00-145.00 3.50-5.10 144 4.4 INR (PTT:PT) 0.90-1.10 1 Troponin I (ng/ml) CPK-MB (ng/ML) 0.02-0.05 0.50-3.60 0.02 Not Drawn Medication Medication Total Dose (Bolus/Oral) Medication Total Dosage/Unit 1% XYLOCAINE 20 mL ANGIOMAX BOLUS 18.2 mL EFFIENT 60 mg VERSED 2 mg Medications (Bolus/Oral) Medication Time Given Dosage/Unit Administered By Reason VERSED 07/15/2018 1:30:38 PM 1 mg Ezra Montoya RN 1 mg VERSED given in lab by Ezra Montoya RN in Right Antecubital via Peripheral IV. Ordered by Jose Mccollum. VERSED 07/15/2018 1:34:50 PM 1 mg Ezra Montoya RN 1 mg VERSED given in lab by Ezra Montoya RN in Right Antecubital via Peripheral IV. Ordered by Jose Mccollum. 1% XYLOCAINE 07/15/2018 1:37:01 PM 20 mL Jose Mccollum 20 mL 1% XYLOCAINE given in lab by Jose Mccollum in Right Groin via Subcutaneous. ANGIOMAX BOLUS 07/15/2018 1:51:50 PM 18.2 mL Ezra Montoya RN 18.2 mL ANGIOMAX BOLUS given in lab by Ezra Montoya RN in Right Antecubital via Peripheral IV. Ordere d by Jose Mccollum. EFFIENT 07/15/2018 2:14:39 PM 60 mg Ezra Montoya RN 60 mg EFFIENT given in lab by Ezra Montoya RN via Oral. Ordered by Jose Mccollum. Medication (Drip) Medication Time Given Dosage/Unit Concentration/Unit Diluent (ml) Solution ANGIOMAX DRIP 07/15/2018 1:54:50 PM 1.75 mg/kg/hr 250 mg 50 NaCl .9 1.75 mg/kg/hr ANGIOMAX DRIP given in lab by Ezra Montoya RN in Right Antecubital via Peripheral IV. P ump/Drip Flow = 42.49 ml/hr using NaCl .9 with a concentration of 250 mg in 50 ml. Ordered by Jose Mccollum. IV Solutions 07/15/2018 1:12:41 PM 50 mL (IV) NaCl .9 IV Solutions given in lab by Ezra Montoya RN in Right Antecubital via Peripheral IV. Pump/Drip Flow u sing NaCl .9. Initial Case Assessment Cardiovascular Chest Pain 0 Edema Present Skin color Skin None Normal Warm Dry Circulatory - Right Pulses Dorsalis Pedis Femoral 2 2 Scale (0,1,2,3,4,d) Circulatory - Left Pulses Dorsalis Pedis Femoral 2 2 Scale (0,1,2,3,4,d) Neurological State Oriented to time-place- Alert Moves all extremities person Chronological Log Time Study Chronological Log 13:11:12 Patient arrived via Bed. 13:12:18 Patient Name, D.O.B, / Armband Verified By R.N. 13:12:19 Consent signed by the physician and the patient and verified by the [employer] staff. 13:12:23 Pre-op and post- op instructions given; patient acknowledges understanding of instructions . 13:12:30 Presedation assessment performed by [employer] RN. 13:12:32 Patient has been NPO for More than 6Hrs. 13:12:33 Skin Breakdown- none per pt 13:12:35 Patient Warmer Placed on the Table. 13:12:36 Angelita Prominences Protected 13:12:38 A # 20 IV was noted in the Antecubital (right). Grade = 0 13:12:41 IV Solutions given in lab by Ezra Montoya RN in Right Antecubital via Peripheral IV. Pump/ Drip Flow using NaCl .9. 13:12:43 History and physical on the chart or being dictated. Assessment: Initial Case, Chest Pain=0, Edema=None, Color=Normal, Skin = Warm, Dry Right Pulses: Juarez Ped=2, Femoral=2 13:12:44 Left Pulses: Juarez Ped=2, Femoral=2 Neurological: State=Alert, Ox3, MCCLURE Vitals capture started with the following parameters, Patient=Adult, Interval=5 min, Initial P xrmxqht=804 mmHg, 13:20:03 Deflation Rate=5 mmHg, Cuff placed on Left Arm 13:20:42 HR=56 bpm, YYBM=482/75 mmhg, SpO2=97.0 %, Resp=17 B/min 13:20:47 Reference ECG taken 13:21:59 Bilateral groins prepped with 2% chlorhexidine, and draped after a 3 minute waiting time. 13:25:41 HR=51 bpm, GUOB=392/65 mmhg, SpO2=95.0 %, Resp=12 B/min 13:26:45 MD paged 13:28:30 Pressure channel 2 zeroed. 13:29:21 MD arrived. 13:30:38 1 mg VERSED given in lab by Ezra Montoya RN in Right Antecubital via Peripheral IV. Ordered by Jose Mccollum. 13:30:40 HR=56 bpm, XPYU=213/73 mmhg, SpO2=95 %, Resp=11 B/min Time Out. Correct patient, correct procedure, correct physician, labs, allergies, and equipment verified with civil laboratory technician 13:33:50 team present. Fire risk assesment completed (see hard stop sheet for coding). Time Out Conc urred by MD and individual staff in procedure. 13:34:50 1 mg VERSED given in lab by Ezra Montoya RN in Right Antecubital via Peripheral IV. Ordered by Jsoe Mccollum. 13:35:41 HR=57 bpm, AKJJ=572/72 mmhg, SpO2=95 %, Resp=15 B/min 13:37:00 Case Start 13:37:01 20 mL 1% XYLOCAINE given in lab by Jose Mccollum in Right Groin via Subcutaneous. 13:38:29 Access site was Right Femoral Artery with micriopuncture. 13:38:57 A SHEATH, FR6.5 PRELUDE 11CM FR 6.5 was advanced into the Fem Art (right) using the Percuta neous technique. A PIGTAIL ANG. 145 INFINITI CATHETER FR 6 was advanced over a wire. OMNIPAQUE, 350 MG, 150ML 15 0ML was 13:39:50 used for injections. 13:40:42 HR=55 bpm, OGTQ=235/67 mmhg, SpO2=95 %, Resp=20 B/min Recorded Pressure: LV, HR=53, Condition=Condition 1 13:41:22 (Left Ventricle) LV 113/5/19 13:42:25 The LV was injected at 10 cc/sec for a total of 30. OMNIPAQUE, 350 MG, 50ML 50ML used. Recorded Pressure: LV, Ao, HR=57, Condition=Condition 1 13:43:13 (Left Ventricle) LV 111/1/21, (Aorta) Ao 111/55/79 13:43:28 Catheter was removed A JL 5.0 INFINITI CATHETER FR 6 was advanced over a wire. OMNIPAQUE, 350 MG, 150ML 150ML was ed for 13:44:06 injections. Recorded Pressure: Ao, HR=54, Condition=Condition 1 13:45:16 (Aorta) Ao 107/58/80 13:45:24 The LCA was injected and visualized at various angles. OMNIPAQUE, 350 MG, 150ML 150ML used . 13:45:43 HR=57 bpm, HOJS=324/63 mmhg, SpO2=93.0 %, Resp=20 B/min 13:49:48 Catheter was removed A 3DRC INFINITI CATHETER FR 5 was advanced over a wire. OMNIPAQUE, 350 MG, 150ML 150ML was used for 13:49:52 injections. 13:50:30 The RCA was injected and visualized at various angles. OMNIPAQUE, 350 MG, 150ML 150ML used . 13:50:40 HR=56 bpm, IPHB=292/69 mmhg, SpO2=93 %, Resp=24 B/min 18.2 mL ANGIOMAX BOLUS given in lab by Ezra Montoya RN in Right Antecubital via Peripheral IV. Ordered by Chun 13:51:50 Jose. 13:52:50 Catheter was removed A XBLAD 4.5 GUIDE CATHETER FR 6 was advanced over a wire. OMNIPAQUE, 350 MG, 150ML 150ML was ed for 13:52:53 injections. 13:54:45 A WIRE, ATW MARKER 195CM 195CM was inserted via Fem Art (right). 1.75 mg/kg/hr ANGIOMAX DRIP given in lab by Ezra Montoya RN in Right Antecubital via Peripheral IV. Pump/Drip Flow = 13:54:50 42.49 ml/hr using NaCl .9 with a concentration of 250 mg in 50 ml. Ordered by Jose Mccollum. 13:55:43 HR=52 bpm, PEIP=282/65 mmhg, SpO2=93.0 %, Resp=18 B/min A STENT, 4.0 15MM SAMEERA 4.0 15MM was advanced through a XBLAD 4.5 GUIDE CATHETER FR 6 over a WIR E, ATW 13:57:21 MARKER 195CM 195CM. A STENT, 4.0 15MM SAMEERA 4.0 15MM was deployed using a 30 BENEDICTO INDEFLATOR at 16 atmospheres for 40 seconds in 13:58:28 the LAD Prox. 13:59:44 Delivery device removed 14:00:42 HR=55 bpm, ENQN=871/69 mmhg, SpO2=93.0 %, Resp=13 B/min A BALLOON, 4.5 8MM NC QUANTUM APEX MR 4.5 8MM was inserted over WIRE, ATW MARKER 195CM 195CM v ia the 14:03:20 Fem Art (right). A BALLOON, 4.5 8MM NC QUANTUM APEX MR 4.5 8MM over a WIRE, ATW MARKER 195CM 195CM in the LAD P janeth was 14:04:03 inflated using a 30 BENEDICTO INDEFLATOR at 20 benedicto for 30 sec. A BALLOON, 4.5 8MM NC QUANTUM APEX MR 4.5 8MM over a WIRE, ATW MARKER 195CM 195CM in the LAD P janeth was 14:05:16 inflated using a 30 BENEDICTO INDEFLATOR at 16 benedicto for 15 sec. 14:05:39 HR=57 bpm, VLPX=581/70 mmhg, SpO2=93.0 %, Resp=18 B/min 14:07:00 Balloon Removed. 14:08:12 Catheter was removed 14:08:16 Wire removed 14:08:27 An injection in the Fem Art (right) was made through the SHEATH, FR6.5 PRELUDE 11CM FR 6.5 . 14:09:50 ANGIOSEAL, FR6 VIP FR 6 placement in the Fem Art (right) 14:10:42 HR=53 bpm, ORFT=553/74 mmhg, SpO2=96.0 %, Resp=22 B/min 14:12:31 Case End (Physician broke scrub) 14:12:46 Sterile dressing applied to site 14:12:48 No case complications noted. 14:12:49 Cine recording checked. 14:12:51 Bedside Report will be given. 14:12:52 Implantable Device card placed in patient's chart. 14:12:52 Report called to floor. 14:12:58 A Left Heart Cath was performed. 14:14:39 60 mg EFFIENT given in lab by Ezra Montoya RN via Oral. Ordered by Jose Mccollum. 14:15:41 HR=57 bpm, XFVE=024/74 mmhg, SpO2=97.0 %, Resp=10 B/min 14:21:14 Vitals capture stopped. 14:21:20 Patient moved to [facility] End Study - Contrast Media Used In Study Contrast Total Opened (mL) Total Used (mL) Total Wasted (mL) Omnipaque 200 120 80 End Study - Maximum Contrast Load Max Contrast Load (mL) 674.2 End Study - Radiation Exposure Fluoro Time (minutes) 7.2 End Study - Patient Disposition Complications Transferred To Interventional Outcome No Telemetry Bed successful
[2018-07-15] MEDS ORDERED: Morphine Sulfate Inj 2 MG/ML Vial IV.PUSH PRN (14:24)
[2018-07-15] MEDS ORDERED: Acetaminophen 325 MG Tablet PO PRN (14:24)
[2018-07-15] MEDS ORDERED: Misc Info for Pharmacy OTHER STA (14:24)
--- NOTE | 2018-07-15 15:27 | MA ---
cc: Jose Mccollum MD DATE: 07/15/2018 PROCEDURES PERFORMED: 1. Left heart catheterization. 2. Left ventriculography. 3. Coronary angiography. 4. Balloon angioplasty and stenting of the proximal left anterior descending coronary artery. DESCRIPTION OF PROCEDURE: The patient was brought to the cardiac catheterization lab in a fasting state. Using 1% lidocaine for local anesthesia and a micropuncture set, a 6-Indian sheath was easily inserted in the right femoral artery. Left ventricular pressure was then recorded using the pigtail catheter, followed by left ventriculography and then a pullback. Coronary angiography was then performed using a left 5 Natalia for the left coronary artery and a 3DRC for the right coronary artery. I decided to proceed with intervention. A 6-Indian XB-4.5 LAD guiding catheter was used to engage the left main and the LAD was then crossed with an ATW marker wire. I then directly stented using a 4.0 mm x 15 mm Resolute [place] stent at 16 atmospheres. I postdilated the distal part of the stent with a 4.5 mm x 8 mm [place] noncompliant balloon to 20 atmospheres and the proximal end at LAD at 16 atmospheres. Angiography demonstrated a superb result. There were no complications. The patient was loaded with Effient at the end of the case. FINDINGS: 1. HEMODYNAMICS: Left ventricular pressure was 111/1 with an end diastolic pressure mildly elevated at 21. Aortic pressure is 107/58 with a mean of 80. There was no gradient during pullback the left ventricle to the aorta. 2. LEFT VENTRICULOGRAPHY: Left ventriculography shows mild anterolateral hypokinesis. Estimated ejection fraction is 50%. 3. CORONARY ANGIOGRAPHY: Left main coronary artery appears normal. Left anterior descending artery has a 99% proximal in-stent restenosis lesion. Then more distal in the mid LAD is a 20% stenosis. The remainder of the LAD has irregularities. Circumflex artery has about 10% narrowing of the proximal major obtuse marginal branch. The right coronary artery is dominant and has about 40% proximal disease. 3. RESULTS OF STENTING: Following stenting of the proximal LAD, a 0% residual stenosis has been achieved. CONCLUSIONS: Critical stenosis in the proximal LAD inside of his old stents, now successfully stented with a drug-eluting stent. RECOMMENDATIONS: The patient will continue on aspirin and Effient at discharge. MD MARIA G Em/melonie , 02:22 PM , 02:31 PM
[2018-07-16 00:15] VITALS: BP 118/72; TEMP 98.3
[2018-07-16] MEDS: Sod Chloride 0.9% Inj 1,000 ML IV.CONT SCH (04:30)
[2018-07-16 05:39] LABS: Baso % (Auto) 0.4 % (0.0-2.0); Eos # (Auto) 0.2 th/mm3 (0.0-0.4); Eos % (Auto) 2.7 % (0.0-4.0); Hematocrit 42.9 % (39.0-51.0); Hemoglobin 14.3 gm/dL (13.0-17.0); Lymph # (Auto) 1.5 th/mm3 (1.0-4.8); Lymph % (Auto) 19.4 % (9.0-44.0); Mean Corpuscular HGB Conc 33.2 % (32.0-36.0); Mean Corpuscular Hemoglobin 31.6 pg (27.0-34.0); Mean Corpuscular Volume 94.9 fL (80.0-100.0); Mono # (Auto) 0.5 th/mm3 (0.0-0.9); Mono % (Auto) 7.3 % (0.0-8.0); Neut # (Auto) 5.3 th/mm3 (1.8-7.7); Neut % (Auto) 70.2 % (16.0-70.0); Platelet Count 217 th/mm3 (150-450); Red Blood Count 4.52 mil/mm3 (4.50-5.90); Red Cell Distribution Width 12.9 % (11.6-17.2); White Blood Count 7.5 th/mm3 (4.0-11.0)
[2018-07-16 06:03] LABS: Calcium 8.4 mg/dL (8.5-10.1); Carbon Dioxide 28.1 meq/L (21.0-32.0)
--- NOTE | 2018-07-16 08:38 | P.PN ---
Subjective Interval history: This is a pleasant 63 y/o male with CAD status post LAD stent in 2008 and repeated in 2011, Seen in his bedroom in the presence of his , discussed with nurse miss Draper, Status post left heart Cath, EF 50%, Left main coronary artery appears normal. Left anterior descending artery has a 99% proximal in-stent restenosis lesion. Then more distal in the mid LAD is a 20% stenosis. The remainder of the LAD has irregularities. Circumflex artery has about 10% narrowing of the proximal major obtuse marginal branch. The right coronary artery is dominant and has about 40% proximal disease. Following stenting of the proximal LAD, a 0% residual stenosis has been achieved. Critical stenosis in the proximal LAD inside of his old stents, now successfully stented with a drug-eluting stent. discharge on Aspirin and Effient not yet cleared by senior tax specialist Doctor Jose Mccollum. 07/16: Stable seen by senior tax specialist and recommended for discharge now, and may continue with dental work next 07/22/18, no nausea, vomit or diarrhea. Physical Exam Vital signs: Vital Signs 07/15/18 08:59 07/15/18 09:00 07/15/18 10:00 Temperature Pulse Rate 54 L 54 L Respiratory Rate Blood Pressure Pulse Oximetry 95 07/15/18 10:52 07/15/18 11:00 07/15/18 12:00 Temperature 97.5 F L Pulse Rate 58 L 60 50 L Respiratory Rate 18 Blood Pressure 120/65 Pulse Oximetry 97 07/15/18 13:00 07/15/18 14:42 07/15/18 14:54 Temperature 97.7 F Pulse Rate 54 L 52 L 61 Respiratory Rate 18 18 Blood Pressure 117/72 133/80 Pulse Oximetry 98 07/15/18 15:00 07/15/18 15:09 07/15/18 15:39 Temperature Pulse Rate 57 L 60 Respiratory Rate 18 Blood Pressure 135/85 118/74 Pulse Oximetry 07/15/18 16:00 07/15/18 16:09 07/15/18 16:39 Temperature Pulse Rate 56 L Respiratory Rate Blood Pressure 115/80 117/78 Pulse Oximetry 07/15/18 17:00 07/15/18 17:09 07/15/18 18:00 Temperature Pulse Rate 54 L 54 L Respiratory Rate Blood Pressure 134/74 Pulse Oximetry 07/15/18 18:09 07/15/18 19:00 07/15/18 19:09 Temperature 98.3 F Pulse Rate 57 L 57 L Respiratory Rate 18 Blood Pressure 128/84 127/81 Pulse Oximetry 98 07/15/18 19:24 07/15/18 20:00 07/15/18 20:09 Temperature Pulse Rate 54 L 56 L Respiratory Rate 18 Blood Pressure 118/72 Pulse Oximetry 97 98 97 07/15/18 21:09 07/15/18 22:00 07/15/18 23:00 Temperature Pulse Rate 54 L 52 L 54 L Respiratory Rate 18 Blood Pressure 118/72 Pulse Oximetry 97 07/16/18 00:00 07/16/18 01:00 07/16/18 02:00 Temperature Pulse Rate 51 L 53 L 55 L Respiratory Rate Blood Pressure Pulse Oximetry 07/16/18 03:00 07/16/18 04:00 07/16/18 05:00 Temperature Pulse Rate 57 L 57 L 53 L Respiratory Rate Blood Pressure Pulse Oximetry 07/16/18 06:00 07/16/18 07:00 Temperature Pulse Rate 51 L 57 L Respiratory Rate Blood Pressure Pulse Oximetry Intake & Output 07/15/18 07/16/18 07/16/18 18:59 06:59 18:59 Intake Total 850 / 850 360 / 360 900 / 900 Output Total 1370 / 1370 1400 / 1400 Balance -520 / -520 -1040 / -1040 900 / 900 Weight 119.5 kg Intake: IV 610 / 610 900 / 900 Heparin/NS PF Inj 1,000 ML @ 0 10 / 10 mls/hr .ROUTE .STK-MED ONE Rx#: [id number] NS Inj 1,000 ML @ 100 mls/hr IV 600 / 600 900 / 900 .CONT .Q10H [facility] Rx#:[id number] Oral 240 / 240 360 / 360 Output: Urine 1370 / 1370 1400 / 1400 Other: Date of Last Bowel Movement 07/14/18 07/14/18 # Bowel Movements 0 0 Narrative: General patient in no acute distress HEENT extraocular movements are intact, clear oropharyngeal mucosa, no JVD Cardiovascular S1-S2 audible, no reproducible chest pain on palpation. No active chest pain. No chest wall tenderness on palpation. Respiratory clear to auscultation bilaterally Abdomen soft, nontender, nondistended, normal bowel sounds Extremities no edema 2+ distal pulses in bilateral upper and lower extremities, No ecchymosis, hemorrhage or bruit. Neuro cranial nerves II through XII intact Results - Labs CBC & Chem 7: 07/16/18 04:45 07/16/18 04:45 Laboratory Results - last 24 hr 07/16/18 07/16/18 04:45 04:45 WBC 7.5 RBC 4.52 Hgb 14.3 Hct 42.9 MCV 94.9 MCH 31.6 MCHC 33.2 RDW 12.9 Plt Count 217 MPV 8.0 Neut % (Auto) 70.2 H Lymph % (Auto) 19.4 [place] % (Auto) 7.3 Eos % (Auto) 2.7 Baso % (Auto) 0.4 Neut # (Auto) 5.3 Lymph # (Auto) 1.5 [place] # (Auto) 0.5 Eos # (Auto) 0.2 Baso # (Auto) 0.0 WBC Differential . Differential Comment Auto diff final Sodium 144 Potassium 4.0 Chloride 108 H Carbon Dioxide 28.1 Anion Gap 8 BUN 15 Creatinine 0.96 Estimated GFR 79 L Random Glucose 97 Calcium 8.4 L Total Creatine Kinase 62 Assessment and Plan - Plan This patient is a 63-year-old male with a diagnosis of coronary artery disease status post stent of the LAD in 2008, a repeat stent in the LAD in 2011 as per the patient. He follows up with community resource consultant Dr. Mccollum with [facility]. The patient states he had a nuclear stress test done a couple of months ago which was inconclusive. He denies having any history of chest pain on exertion or at rest however this morning he had 2 cups of coffee and was ambulating at home. He then began to have left-sided chest pressure with some radiation to the left side of his neck. He discussed the situation with his and they then decided to come to the emergency department for evaluation. He denied having any nausea or vomiting, no shortness of breath. 1. Unstable angina Status post left heart Cath, EF 50%, Left main coronary artery appears normal. Left anterior descending artery has a 99% proximal in-stent restenosis lesion. Then more distal in the mid LAD is a 20% stenosis. The remainder of the LAD has irregularities. Circumflex artery has about 10% narrowing of the proximal major obtuse marginal branch. The right coronary artery is dominant and has about 40% proximal disease. Following stenting of the proximal LAD, a 0% residual stenosis has been achieved. Critical stenosis in the proximal LAD inside of his old stents, now successfully stented with a drug-eluting stent. discharge on Aspirin and Effient now cleared by senior tax specialist Doctor Jose Mccollum. 2. Obesity strongly recommended diet and exercise. Heparin for DVT prophylaxis. Code Status: Full Code. Discussed Condition With: Patient and Nurse MR. Willams Discharge Planning: Discharge Home now.
--- NOTE | 2018-07-16 08:55 | P.PNCA ---
Subjective Interval history: No angina. No complaints Medications and Allergies Active Medications: Active Medications Acetaminophen (Tylenol) 325 mg PO Q4H PRN PRN Reason: PAIN SCALE 1 TO 2 Aspirin (Aspirin Chew) 81 mg PO DAILY [facility] Last Admin: 07/15/18 08:07 Dose: 81 mg Atorvastatin Calcium (Lipitor) 40 mg PO HS [facility] Last Admin: 07/15/18 21:34 Dose: 40 mg Diazepam (Valium) 5 mg PO [employer] [facility] Stop: 07/19/18 07:59 Diphenhydramine HCl (Benadryl) 50 mg PO LEAD [employer] [facility] Stop: 07/19/18 07:59 Sodium Chloride (Ns Inj) 1,000 mls @ 100 mls/hr IV.CONT .Q10H [facility] Last Infusion: 07/16/18 07:12 Dose: 100 mls/hr Morphine Sulfate (Morphine Inj) 2 mg IV.PUSH Q4H PRN PRN Reason: PAIN SCALE 6 TO 10 Morphine Sulfate (Morphine Inj) 2 mg IV.PUSH Q30M PRN PRN Reason: BREAKTHROUGH PAIN Nebivolol (Bystolic) 5 mg PO DAILY [facility] Last Admin: 07/15/18 08:07 Dose: 5 mg Nitroglycerin (Nitrostat Sl) 0.4 mg SL Q5M PRN PRN Reason: CHEST PAIN Oxycodone/Acetaminophen (Percocet 5/325 Mg) 1 tab PO Q4H PRN PRN Reason: PAIN SCALE 3 TO 5 Last Admin: 07/15/18 16:36 Dose: 1 tab Prasugrel (Effient) 10 mg PO DAILY [facility] Sodium Chloride (Ns Flush) 2 ml IV.FLUSH BID [facility] Last Admin: 07/15/18 21:10 Dose: 2 ml Sodium Chloride (Ns Flush) 2 ml IV.FLUSH PRN PRN PRN Reason: FLUSH AFTER USING IV ACCESS Allergies Allergy/AdvReac Type Severity Reaction Status Date / Time No Known Allergies AdvReac Unknown Uncoded 10/08/17 13:40 Home Medications Medication Instructions Recorded Confirmed Type aspirin [Aspir-81] 81 mg PO BID 07/13/18 07/13/18 History atorvastatin 40 mg PO DAILY 07/13/18 07/13/18 History coenzyme Q10 [Co Q-10] 30 mg PO DAILY 07/13/18 07/13/18 History glucosamine bentley 2KCl-chondroit 1 cap PO DAILY 07/13/18 07/13/18 History [Glucosamine Sulf-Chondroitin] magnesium 30 mg PO DAILY 07/13/18 07/13/18 History nebivolol [Bystolic] 2.5 mg PO DAILY 07/13/18 07/13/18 History olive leaf extract 250 mg PO DAILY 07/13/18 07/13/18 History omega 3-khy-xsf-fish oil [Fish Oil] 1,000 mg PO DAILY 07/13/18 07/13/18 History rmady-6c-kyb-epa-fish oil-D3 1,150 mg PO DAILY 07/13/18 07/13/18 History [[place] Essentials] Physical Exam Vital signs: Vital Signs 07/15/18 08:59 07/15/18 09:00 07/15/18 10:00 Temperature Pulse Rate 54 L 54 L Respiratory Rate Blood Pressure Pulse Oximetry 95 07/15/18 10:52 07/15/18 11:00 07/15/18 12:00 Temperature 97.5 F L Pulse Rate 58 L 60 50 L Respiratory Rate 18 Blood Pressure 120/65 Pulse Oximetry 97 07/15/18 13:00 07/15/18 14:42 07/15/18 14:54 Temperature 97.7 F Pulse Rate 54 L 52 L 61 Respiratory Rate 18 18 Blood Pressure 117/72 133/80 Pulse Oximetry 98 07/15/18 15:00 07/15/18 15:09 07/15/18 15:39 Temperature Pulse Rate 57 L 60 Respiratory Rate 18 Blood Pressure 135/85 118/74 Pulse Oximetry 07/15/18 16:00 07/15/18 16:09 07/15/18 16:39 Temperature Pulse Rate 56 L Respiratory Rate Blood Pressure 115/80 117/78 Pulse Oximetry 07/15/18 17:00 07/15/18 17:09 07/15/18 18:00 Temperature Pulse Rate 54 L 54 L Respiratory Rate Blood Pressure 134/74 Pulse Oximetry 07/15/18 18:09 07/15/18 19:00 07/15/18 19:09 Temperature 98.3 F Pulse Rate 57 L 57 L Respiratory Rate 18 Blood Pressure 128/84 127/81 Pulse Oximetry 98 07/15/18 19:24 07/15/18 20:00 07/15/18 20:09 Temperature Pulse Rate 54 L 56 L Respiratory Rate 18 Blood Pressure 118/72 Pulse Oximetry 97 98 97 07/15/18 21:09 07/15/18 22:00 07/15/18 23:00 Temperature Pulse Rate 54 L 52 L 54 L Respiratory Rate 18 Blood Pressure 118/72 Pulse Oximetry 97 07/16/18 00:00 07/16/18 01:00 07/16/18 02:00 Temperature Pulse Rate 51 L 53 L 55 L Respiratory Rate Blood Pressure Pulse Oximetry 07/16/18 03:00 07/16/18 04:00 07/16/18 05:00 Temperature Pulse Rate 57 L 57 L 53 L Respiratory Rate Blood Pressure Pulse Oximetry 07/16/18 06:00 07/16/18 07:00 Temperature Pulse Rate 51 L 57 L Respiratory Rate Blood Pressure Pulse Oximetry Intake & Output 07/15/18 07/16/18 07/16/18 18:59 06:59 18:59 Intake Total 850 / 850 360 / 360 900 / 900 Output Total 1370 / 1370 1400 / 1400 Balance -520 / -520 -1040 / -1040 900 / 900 Weight 119.5 kg Intake: IV 610 / 610 900 / 900 Heparin/NS PF Inj 1,000 ML @ 0 10 / 10 mls/hr .ROUTE .STK-MED ONE Rx#: [id number] NS Inj 1,000 ML @ 100 mls/hr IV 600 / 600 900 / 900 .CONT .Q10H [facility] Rx#:[id number] Oral 240 / 240 360 / 360 Output: Urine 1370 / 1370 1400 / 1400 Other: Date of Last Bowel Movement 07/14/18 07/14/18 # Bowel Movements 0 0 Narrative: Alert, NAD No JVD Chest CTA CV S1S2 RRR with 1/6 PATTIE Abd soft Right groin perfect Ect No C/C/E EKG OK Labs OK Results 07/16/18 04:45 07/16/18 04:45 Coagulation 07/15/18 Range/Units 04:47 PT 10.6 (9.8-11.6) sec CBC 07/16/18 Range/Units 04:45 WBC 7.5 (4.0-11.0) th/mm3 RBC 4.52 (4.50-5.90) mil/mm3 Hgb 14.3 (13.0-17.0) gm/dL Hct 42.9 (39.0-51.0) % Plt Count 217 (150-450) th/mm3 Neut # (Auto) 5.3 (1.8-7.7) th/mm3 Lymph # (Auto) 1.5 (1.0-4.8) th/mm3 [place] # (Auto) 0.5 (0.0-0.9) th/mm3 Eos # (Auto) 0.2 (0.0-0.4) th/mm3 Baso # (Auto) 0.0 (0.0-0.2) th/mm3 Comprehensive Metabolic Panel 07/15/18 07/16/18 Range/Units 04:47 04:45 Sodium 144 144 (136-145) meq/L Potassium 4.4 4.0 (3.5-5.1) meq/L Chloride 108 H 108 H (98-107) meq/L Carbon Dioxide 28.2 28.1 (21.0-32.0) meq/L BUN 17 15 (7-18) mg/dL Creatinine 0.96 0.96 (0.60-1.30) mg/dL Calcium 8.6 8.4 L (8.5-10.1) mg/dL Intake and Output 07/15/18 07/16/18 07/16/18 22:59 06:59 14:59 Intake Total 840 / 840 360 / 360 900 / 900 Output Total 1370 / 1370 1400 / 1400 Balance -530 / -530 -1040 / -1040 900 / 900 Intake: IV 600 / 600 900 / 900 NS Inj 1,000 ML @ 100 mls/hr IV 600 / 600 900 / 900 .CONT .Q10H [facility] Rx#:[id number] Oral 240 / 240 360 / 360 Output: Urine 1370 / 1370 1400 / 1400 Other: Date of Last Bowel Movement 07/14/18 07/14/18 # Bowel Movements 0 0 Weight 119.5 kg Assessment and Plan - Assessment (1) Unstable angina Code(s): I20.0 - Unstable angina Status: Acute Plan: Resolved with LAD stent (2) Stented coronary artery Code(s): Z95.5 - Presence of coronary angioplasty implant and graft Status: Acute Plan: Cont ASA and prasugrel (3) Obesity Code(s): E66.9 - Obesity, unspecified Status: Acute Plan: Counseled on lifestyle (4) Hyperlipidemia Code(s): E78.5 - Hyperlipidemia, unspecified Status: Acute Plan: Cont Statin - Plan OK to discharge. 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 OV 2 weeks
--- NOTE | 2018-07-16 10:29 | P.DS ---
Date of admission: 07/13/18 15:53 Primary care physician: Castro Durand MD Attending physician on discharge: Jae Rogel Anticipated date of discharge: 07/16/18 Brief History from admission: This patient is a 63-year-old male with a diagnosis of coronary artery disease status post stent of the LAD in 2008, a repeat stent in the LAD in 2011 as per the patient. He follows up with stud beef cattle farmer Dr. Mccollum with [facility]. The patient states he had a nuclear stress test done a couple of months ago which was inconclusive. He denies having any history of chest pain on exertion or at rest however this morning he had 2 cups of coffee and was ambulating at home. He then began to have left-sided chest pressure with some radiation to the left side of his neck. He discussed the situation with his and they then decided to come to the emergency department for evaluation. He denied having any nausea or vomiting, no shortness of breath. Past medical history coronary artery disease status post stent of the LAD in 2008 and in 2011. Surgical history perforated appendix in 2018. Intra-abdominal abscess drainage in 2018 after the initial perforated appendix. Family history significant for CABG in his mother after the age of 65. His brother has had 2 strokes, he is unsure at what age his brother had the strokes. Social history the patient states he smoked a few cigarettes socially in his younger years. Drinks alcohol socially. Denies any history of drug use. Allergies no known drug allergies Medications aspirin 81 mg p.o. daily Bystolic 10 mg p.o. daily Lipitor 40 mg p.o. nightly DS: Diagnosis - Discharge Diagnosis (1) Obesity Status: Acute (2) Stented coronary artery Status: Acute (3) Unstable angina Status: Acute DS: Summary Hospital Course: This is a pleasant 63 y/o male with CAD status post LAD stent in 2008 and repeated in 2011, Seen in his bedroom in the presence of his , discussed with nurse miss Draper, Status post left heart Cath, EF 50%, Left main coronary artery appears normal. Left anterior descending artery has a 99% proximal in-stent restenosis lesion. Then more distal in the mid LAD is a 20% stenosis. The remainder of the LAD has irregularities. Circumflex artery has about 10% narrowing of the proximal major obtuse marginal branch. The right coronary artery is dominant and has about 40% proximal disease. Following stenting of the proximal LAD, a 0% residual stenosis has been achieved. Critical stenosis in the proximal LAD inside of his old stents, now successfully stented with a drug-eluting stent. discharge on Aspirin and Effient not yet cleared by lighting specialist Doctor Jose Mccollum. 07/16: Stable seen by lighting specialist and recommended for discharge now, and may continue with dental work next 07/22/18, no nausea, vomit or diarrhea. Physical Exam Vital signs: Vital Signs 07/15/18 08:59 07/15/18 09:00 07/15/18 10:00 Temperature Pulse Rate 54 L 54 L Respiratory Rate Blood Pressure Pulse Oximetry 95 07/15/18 10:52 07/15/18 11:00 07/15/18 12:00 Temperature 97.5 F L Pulse Rate 58 L 60 50 L Respiratory Rate 18 Blood Pressure 120/65 Pulse Oximetry 97 07/15/18 13:00 07/15/18 14:42 07/15/18 14:54 Temperature 97.7 F Pulse Rate 54 L 52 L 61 Respiratory Rate 18 18 Blood Pressure 117/72 133/80 Pulse Oximetry 98 07/15/18 15:00 07/15/18 15:09 07/15/18 15:39 Temperature Pulse Rate 57 L 60 Respiratory Rate 18 Blood Pressure 135/85 118/74 Pulse Oximetry 07/15/18 16:00 07/15/18 16:09 07/15/18 16:39 Temperature Pulse Rate 56 L Respiratory Rate Blood Pressure 115/80 117/78 Pulse Oximetry 07/15/18 17:00 07/15/18 17:09 07/15/18 18:00 Temperature Pulse Rate 54 L 54 L Respiratory Rate Blood Pressure 134/74 Pulse Oximetry 07/15/18 18:09 07/15/18 19:00 07/15/18 19:09 Temperature 98.3 F Pulse Rate 57 L 57 L Respiratory Rate 18 Blood Pressure 128/84 127/81 Pulse Oximetry 98 07/15/18 19:24 07/15/18 20:00 07/15/18 20:09 Temperature Pulse Rate 54 L 56 L Respiratory Rate 18 Blood Pressure 118/72 Pulse Oximetry 97 98 97 07/15/18 21:09 07/15/18 22:00 07/15/18 23:00 Temperature Pulse Rate 54 L 52 L 54 L Respiratory Rate 18 Blood Pressure 118/72 Pulse Oximetry 97 07/16/18 00:00 07/16/18 01:00 07/16/18 02:00 Temperature Pulse Rate 51 L 53 L 55 L Respiratory Rate Blood Pressure Pulse Oximetry 07/16/18 03:00 07/16/18 04:00 07/16/18 05:00 Temperature Pulse Rate 57 L 57 L 53 L Respiratory Rate Blood Pressure Pulse Oximetry 07/16/18 06:00 07/16/18 07:00 Temperature Pulse Rate 51 L 57 L Respiratory Rate Blood Pressure Pulse Oximetry Intake & Output 07/15/18 07/16/18 07/16/18 18:59 06:59 18:59 Intake Total 850 / 850 360 / 360 900 / 900 Output Total 1370 / 1370 1400 / 1400 Balance -520 / -520 -1040 / -1040 900 / 900 Weight 119.5 kg Intake: IV 610 / 610 900 / 900 Heparin/NS PF Inj 1,000 ML @ 0 10 / 10 mls/hr .ROUTE .[facility] Rx#: [id number] NS Inj 1,000 ML @ 100 mls/hr IV 600 / 600 900 / 900 .CONT .Q10H [facility] Rx#:[id number] Oral 240 / 240 360 / 360 Output: Urine 1370 / 1370 1400 / 1400 Other: Date of Last Bowel Movement 07/14/18 07/14/18 # Bowel Movements 0 0 Results - Labs CBC & Chem 7: 07/16/18 04:45 07/16/18 04:45 Laboratory Results - last 24 hr 07/16/18 07/16/18 04:45 04:45 WBC 7.5 RBC 4.52 Hgb 14.3 Hct 42.9 MCV 94.9 MCH 31.6 MCHC 33.2 RDW 12.9 Plt Count 217 MPV 8.0 Neut % (Auto) 70.2 H Lymph % (Auto) 19.4 [place] % (Auto) 7.3 Eos % (Auto) 2.7 Baso % (Auto) 0.4 Neut # (Auto) 5.3 Lymph # (Auto) 1.5 [place] # (Auto) 0.5 Eos # (Auto) 0.2 Baso # (Auto) 0.0 WBC Differential . Differential Comment Auto diff final Sodium 144 Potassium 4.0 Chloride 108 H Carbon Dioxide 28.1 Anion Gap 8 BUN 15 Creatinine 0.96 Estimated GFR 79 L Random Glucose 97 Calcium 8.4 L Total Creatine Kinase 62 Assessment and Plan - Plan This patient is a 63-year-old male with a diagnosis of coronary artery disease status post stent of the LAD in 2008, a repeat stent in the LAD in 2011 as per the patient. He follows up with stud beef cattle farmer Dr. Mccollum with [facility]. The patient states he had a nuclear stress test done a couple of months ago which was inconclusive. He denies having any history of chest pain on exertion or at rest however this morning he had 2 cups of coffee and was ambulating at home. He then began to have left-sided chest pressure with some radiation to the left side of his neck. He discussed the situation with his and they then decided to come to the emergency department for evaluation. He denied having any nausea or vomiting, no shortness of breath. 1. Unstable angina Status post left heart Cath, EF 50%, Left main coronary artery appears normal. Left anterior descending artery has a 99% proximal in-stent restenosis lesion. Then more distal in the mid LAD is a 20% stenosis. The remainder of the LAD has irregularities. Circumflex artery has about 10% narrowing of the proximal major obtuse marginal branch. The right coronary artery is dominant and has about 40% proximal disease. Following stenting of the proximal LAD, a 0% residual stenosis has been achieved. Critical stenosis in the proximal LAD inside of his old stents, now successfully stented with a drug-eluting stent. discharge on Aspirin and Effient now cleared by lighting specialist Doctor Jose Mccollum. 2. Obesity strongly recommended diet and exercise. Heparin for DVT prophylaxis. Code Status: Full Code. Discussed Condition With: Patient and Nurse MR. Willams Discharge Planning: Discharge Home now. - Time Spent with Patient Total time spent providing and/or coordinating discharge services: Less than 30 minutes Exam Vital signs: Vital Signs 07/15/18 10:52 07/15/18 11:00 07/15/18 12:00 Temperature 97.5 F L Pulse Rate 58 L 60 50 L Respiratory Rate 18 Blood Pressure 120/65 Pulse Oximetry 97 07/15/18 13:00 07/15/18 14:42 07/15/18 14:54 Temperature 97.7 F Pulse Rate 54 L 52 L 61 Respiratory Rate 18 18 Blood Pressure 117/72 133/80 Pulse Oximetry 98 07/15/18 15:00 10/08/18 15:09 07/15/18 15:39 Temperature Pulse Rate 57 L 60 Respiratory Rate 18 Blood Pressure 135/85 118/74 Pulse Oximetry 07/15/18 16:00 07/15/18 16:09 07/15/18 16:39 Temperature Pulse Rate 56 L Respiratory Rate Blood Pressure 115/80 117/78 Pulse Oximetry 07/15/18 17:00 07/15/18 17:09 07/15/18 18:00 Temperature Pulse Rate 54 L 54 L Respiratory Rate Blood Pressure 134/74 Pulse Oximetry 07/15/18 18:09 07/15/18 19:00 07/15/18 19:09 Temperature 98.3 F Pulse Rate 57 L 57 L Respiratory Rate 18 Blood Pressure 128/84 127/81 Pulse Oximetry 98 07/15/18 19:24 07/15/18 20:00 07/15/18 20:09 Temperature Pulse Rate 54 L 56 L Respiratory Rate 18 Blood Pressure 118/72 Pulse Oximetry 97 98 97 07/15/18 21:09 07/15/18 22:00 07/15/18 23:00 Temperature Pulse Rate 54 L 52 L 54 L Respiratory Rate 18 Blood Pressure 118/72 Pulse Oximetry 97 07/16/18 00:00 07/16/18 01:00 07/16/18 02:00 Temperature Pulse Rate 51 L 53 L 55 L Respiratory Rate Blood Pressure Pulse Oximetry 07/16/18 03:00 07/16/18 04:00 07/16/18 05:00 Temperature Pulse Rate 57 L 57 L 53 L Respiratory Rate Blood Pressure Pulse Oximetry 07/16/18 06:00 07/16/18 07:00 Temperature Pulse Rate 51 L 57 L Respiratory Rate Blood Pressure Pulse Oximetry Intake & Output 07/15/18 07/16/18 07/16/18 18:59 06:59 18:59 Intake Total 850 / 850 360 / 360 900 / 900 Output Total 1370 / 1370 1400 / 1400 Balance -520 / -520 -1040 / -1040 900 / 900 Weight 119.5 kg Intake: IV 610 / 610 900 / 900 Heparin/NS PF Inj 1,000 ML @ 0 10 / 10 mls/hr .ROUTE .[facility] Rx#: [id number] NS Inj 1,000 ML @ 100 mls/hr IV 600 / 600 900 / 900 .CONT .Q10H [facility] Rx#:[id number] Oral 240 / 240 360 / 360 Output: Urine 1370 / 1370 1400 / 1400 Other: Date of Last Bowel Movement 07/14/18 07/14/18 # Bowel Movements 0 0 Narrative: General patient in no acute distress HEENT extraocular movements are intact, clear oropharyngeal mucosa, no JVD Cardiovascular S1-S2 audible, no reproducible chest pain on palpation. No active chest pain. No chest wall tenderness on palpation. Respiratory clear to auscultation bilaterally Abdomen soft, nontender, nondistended, normal bowel sounds Extremities no edema 2+ distal pulses in bilateral upper and lower extremities, No ecchymosis, hemorrhage or bruit. Neuro cranial nerves II through XII intact Results Procedures completed during hospitalization: Status post left heart Cath, EF 50%, Left main coronary artery appears normal. Left anterior descending artery has a 99% proximal in-stent restenosis lesion. Then more distal in the mid LAD is a 20% stenosis. The remainder of the LAD has irregularities. Circumflex artery has about 10% narrowing of the proximal major obtuse marginal branch. The right coronary artery is dominant and has about 40% proximal disease. Following stenting of the proximal LAD, a 0% residual stenosis has been achieved. Critical stenosis in the proximal LAD inside of his old stents, now successfully stented with a drug-eluting stent. Labs on day of discharge: Labs from last 24 hours 07/16/18 07/16/18 04:45 04:45 WBC 7.5 RBC 4.52 Hgb 14.3 Hct 42.9 MCV 94.9 MCH 31.6 MCHC 33.2 RDW 12.9 Plt Count 217 MPV 8.0 Neut % (Auto) 70.2 H Lymph % (Auto) 19.4 [place] % (Auto) 7.3 Eos % (Auto) 2.7 Baso % (Auto) 0.4 Neut # (Auto) 5.3 Lymph # (Auto) 1.5 [place] # (Auto) 0.5 Eos # (Auto) 0.2 Baso # (Auto) 0.0 WBC Differential . Differential Comment Auto diff final Sodium 144 Potassium 4.0 Chloride 108 H Carbon Dioxide 28.1 Anion Gap 8 BUN 15 Creatinine 0.96 Estimated GFR 79 L Random Glucose 97 Calcium 8.4 L Total Creatine Kinase 62 - Impressions ITS Impressions Chest X-Ray 07/13/18 12:35 CONCLUSION: No acute intrathoracic disease. Stable examination. Discharge Plan - Discharge Disposition Patient Disposition: 01 Discharge Home - Discharge Condition Condition: Good - Discharge Order Discharge Orders: Discharge Order (Routine); Ordered 07/16/18 Ordered By: Jae Rogel Cardiology Clear for Discharge (Routine); Ordered 07/16/18 Ordered By: Jose Mccollum - Discharge Details Anticipated Discharge Date: 07/16/18 Discharge Comment: Follow up with PCP in three days - Physicians Team Primary Care Provider: Castro Durand Attending Provider: Jae Rogel Other Providers: Sandra Loja MD
[2018-07-16 10:33] VITALS: O2SAT 96
[2018-07-16 11:50] VITALS: PULSE 66
== END 2018-07-16 12:21 | disposition home or self-care (01) ==
LOC: NEPC 12:02 → INTOOBSV 15:53 → NEDA 15:53 → HCPC 17:03
PROVIDERS: ADMIT Internal Medicine; ATTEND Internal Medicine